=== PATIENT | male | born 1945 | race Caucasian/White ===

== ENCOUNTER → 2016-10-28 | Outpatient (CLI) | payer OTHER ==
[~2016-10-28] MED LIST: CHOL100055 PO; FEXO-47 PO; MULTTAB99 PO; OMEG300C7 PO; OMEP20CA5 PO; ROSU20TA14 PO
[2016-10-28 11:21] LABS: Basophils # (auto) 0 uL; Basophils % (auto) 0.5 % (0.0-2.0); Eosinophils # (auto) 0.2 uL; Eosinophils % (auto) 2.9 % (0.0-7.0); Hematocrit 46.7 % (41.0-53.0); Hemoglobin 15.6 g/dL (13.5-17.5); Lymphocytes # (auto) 1.5 uL; Lymphocytes % (auto) 22.5 % (10.0-50.0); Mean Corpuscular Hemoglobin 31.2 pg (28.0-32.0); Mean Corpuscular Hgb Conc. 33.4 g/dL (32.0-36.0); Mean Corpuscular Volume 93.6 fL (80.0-100.0); Mean Platelet Volume 8.5 fL (7.4-10.4); Monocytes # (auto) 0.6 uL; Monocytes % (auto) 8.7 % (0.0-12.0); Neutrophils # (auto) 4.3 uL; Neutrophils % (auto) 65.4 % (37.0-80.0); Platelet Count (auto) 202 10^3/uL (140-450); Red Cell Distribution Width 14.1 % (11.6-16.0); White Blood Cell 6.6 10^3/uL (4.4-10.8)
[2016-10-28 12:01] LABS: BUN/Creatinine Ratio 12.8; Bilirubin, Total 0.5 mg/dL (0.2-1.0); Calcium 9.4 mg/dL (8.5-10.1); Magnesium 2.5 mg/dL (1.6-2.6); Potassium 4.2 mmol/L (3.5-5.1); Total Protein 7.7 g/dL (6.4-8.2)
== END | disposition home or self-care (01) ==
LOC: LAB 10:52
PROVIDERS: ATTEND Internal Medicine
DX: I25.119 Atherosclerotic heart disease of native coronary artery with unspecified angina pectoris (principal); E78.5 Hyperlipidemia, unspecified
CPT/HCPCS: 36415; 80053; 80061; 83735; 84439; 84443; 85025; 85652

== ENCOUNTER → 2016-11-27 | Outpatient (CLI) | payer OTHER | END | disposition home or self-care (01) | LOC: XYW 09:20 | PROVIDERS: ATTEND Internal Medicine Cardiovascular Disease | DX: I35.0 Nonrheumatic aortic (valve) stenosis (principal); Z95.5 Presence of coronary angioplasty implant and graft | CPT/HCPCS: 93306 ==

== ENCOUNTER → 2017-06-16 | Outpatient (CLI) | payer OTHER ==
[~2017-06-16] MED LIST changes: -OMEP20CA5 PO; +OMEP20CA74 PO
[2017-06-16 12:09] LABS: Cholesterol 236 mg/dL (< 200)
[2017-06-16 21:39] LABS: Aspartate Aminotransferase 32 U/L (15-37); HDL Cholesterol 71 mg/dL (40-59); LDL Cholesterol 146 mg/dL (< 100); Triglycerides 225 mg/dL (< 150)
== END | disposition home or self-care (01) ==
LOC: LAB 10:17
PROVIDERS: ATTEND Internal Medicine
DX: E78.00 Pure hypercholesterolemia, unspecified (principal); N40.0 Benign prostatic hyperplasia without lower urinary tract symptoms
CPT/HCPCS: 36415; 80061; 84153; 84450; 84460

== ENCOUNTER → 2017-08-05 | Outpatient (CLI) | payer OTHER | END | disposition home or self-care (01) | LOC: LAB 10:00 | PROVIDERS: ATTEND Physician Assistant | DX: L82.1 Other seborrheic keratosis (principal) ==

== ENCOUNTER → 2017-08-07 | Outpatient (CLI) | payer OTHER ==
[2017-08-07 08:40] LABS: Albumin 4.1 g/dL (3.4-5.0); BUN/Creatinine Ratio 16.3; Bilirubin, Total 0.6 mg/dL (0.2-1.0); Potassium 3.8 mmol/L (3.5-5.1); Total Protein 8.1 g/dL (6.4-8.2)
== END | disposition home or self-care (01) ==
LOC: LAB 07:45
PROVIDERS: ATTEND Internal Medicine Cardiovascular Disease
DX: I35.0 Nonrheumatic aortic (valve) stenosis (principal); E78.5 Hyperlipidemia, unspecified
CPT/HCPCS: 36415; 80053; 80061

== ENCOUNTER → 2018-04-27 | Outpatient (CLI) | payer OTHER ==
[2018-04-27 10:48] LABS: Urine WBC None Seen /hpf (0 - 3)
[2018-04-27 11:27] LABS: Urine Bacteria NONE SEEN /hpf (None Seen); Urine Blood Negative /uL (Negative); Urine Specific Gravity 1.018 (1.001-1.035)
[2018-04-27 11:47] LABS: Basophils # (auto) 0 uL; Basophils % (auto) 0.9 % (0.0-2.0); Eosinophils # (auto) 0.1 uL; Eosinophils % (auto) 2.3 % (0.0-7.0); Hemoglobin 16.3 g/dL (13.5-17.5); Lymphocytes # (auto) 1.3 uL; Lymphocytes % (auto) 25.3 % (10.0-50.0); Mean Corpuscular Hemoglobin 33.3 pg (28.0-32.0); Mean Corpuscular Hgb Conc. 35.5 g/dL (32.0-36.0); Mean Corpuscular Volume 93.7 fL (80.0-100.0); Monocytes # (auto) 0.5 uL; Monocytes % (auto) 9.8 % (0.0-12.0); Neutrophils # (auto) 3.1 uL; Neutrophils % (auto) 61.7 % (37.0-80.0); Nucleated Red Blood Cells % 0.1 %; Platelet Count (auto) 171 10^3/uL (140-450); Red Blood Cells 4.91 10^6/uL (4.5-5.90); Red Cell Distribution Width 14.1 % (11.8-14.3)
[2018-04-27 12:01] LABS: Potassium 4.5 mmol/L (3.5-5.1)
[2018-04-27 12:12] LABS: Albumin 4.3 g/dL (3.4-5.0); BUN/Creatinine Ratio 16.3; Bilirubin, Total 0.5 mg/dL (0.2-1.0); Calcium 9.6 mg/dL (8.5-10.1); Total Protein 8.4 g/dL (6.4-8.2)
[2018-04-27 13:24] LABS: Free T4 (Free Thyroxine) 0.79 ng/dL (0.89-1.76)
[2018-04-27 13:25] LABS: Prostate Specific Antigen 0.76 ng/mL (0.0-4.0)
== END | disposition home or self-care (01) ==
LOC: LAB 09:50
PROVIDERS: ATTEND Internal Medicine
DX: N40.0 Benign prostatic hyperplasia without lower urinary tract symptoms (principal); E78.5 Hyperlipidemia, unspecified; I50.22 Chronic systolic (congestive) heart failure
CPT/HCPCS: 36415; 80053; 80061; 81001; 82550; 84153; 84439; 84443; 85025

== ENCOUNTER → 2018-07-23 | Outpatient (CLI) | payer OTHER, MEDICARE | END | disposition home or self-care (01) | LOC: LAB 14:19 | PROVIDERS: ATTEND Internal Medicine | DX: Z12.11 Encounter for screening for malignant neoplasm of colon (principal); N40.0 Benign prostatic hyperplasia without lower urinary tract symptoms; I25.10 Atherosclerotic heart disease of native coronary artery without angina pectoris; R21 Rash and other nonspecific skin eruption | CPT/HCPCS: 82270 ==

== ENCOUNTER → 2018-08-05 | Outpatient (CLI) | payer MEDICARE, OTHER | END | disposition home or self-care (01) | LOC: XYW 09:56 | PROVIDERS: ATTEND Internal Medicine | DX: I35.8 Other nonrheumatic aortic valve disorders (principal) | CPT/HCPCS: 93306 ==

== ENCOUNTER → 2018-11-04 | Outpatient (CLI) | payer OTHER ==
[2018-11-04 11:00] LABS: Albumin 4.3 g/dL (3.4-5.0); BUN/Creatinine Ratio 18.4; Calcium 9.1 mg/dL (8.5-10.1); Potassium 4.3 mmol/L (3.5-5.1)
[2018-11-04 11:04] LABS: Bilirubin, Total 0.6 mg/dL (0.2-1.0); Total Protein 7.8 g/dL (6.4-8.2)
== END | disposition home or self-care (01) ==
LOC: LAB 10:13
PROVIDERS: ATTEND Internal Medicine
DX: I35.0 Nonrheumatic aortic (valve) stenosis (principal); E11.9 Type 2 diabetes mellitus without complications; I25.10 Atherosclerotic heart disease of native coronary artery without angina pectoris
CPT/HCPCS: 36415; 80053; 80061

== ENCOUNTER 2019-01-27 08:01 | Inpatient (IN) | payer OTHER ==
[2019-01-25 12:14] LABS: INR 0.99 (0.9-1.15)
[2019-01-25 12:23] LABS: Basophils # (auto) 0 uL; Basophils % (auto) 0.8 % (0.0-2.0); Eosinophils # (auto) 0.1 uL; Eosinophils % (auto) 1.5 % (0.0-7.0); Hematocrit 45.5 % (41.0-53.0); Hemoglobin 15.6 g/dL (13.5-17.5); Lymphocytes # (auto) 1.6 uL; Lymphocytes % (auto) 24.8 % (10.0-50.0); Mean Corpuscular Hemoglobin 32.3 pg (28.0-32.0); Mean Corpuscular Hgb Conc. 34.2 g/dL (32.0-36.0); Mean Corpuscular Volume 94.4 fL (80.0-100.0); Monocytes # (auto) 0.6 uL; Monocytes % (auto) 8.7 % (0.0-12.0); Neutrophils # (auto) 4.2 uL; Neutrophils % (auto) 64.2 % (37.0-80.0); Nucleated Red Blood Cells % 0.1 %; Platelet Count (auto) 164 10^3/uL (140-450); Red Blood Cells 4.83 10^6/uL (4.5-5.90); White Blood Cell 6.5 10^3/uL (4.4-10.8)
[2019-01-25 12:57] LABS: Albumin 4.1 g/dL (3.4-5.0); Potassium 4.4 mmol/L (3.5-5.1)
[2019-01-25 13:01] LABS: BUN/Creatinine Ratio 16.7; Bilirubin, Total 0.5 mg/dL (0.2-1.0); Total Protein 8.1 g/dL (6.4-8.2)
[~2019-01-27] VITALS: Ht 170.2 cm; Wt 80.8 kg
[~2019-01-27 08:01] MED LIST changes: +CLOP75TA28 PO; +CLOT1CRE56 TOP; +DEXL30CA4 PO; -FEXO-47 PO; -OMEP20CA74 PO; -ROSU20TA14 PO; +ROSU40TA PO
[2019-01-27] MEDS ORDERED: IOHEXOL 350 MG/ML 100ML IJ ONE ×2 (08:26→08:47)
[2019-01-27] MEDS ORDERED: ANGIOMAX 250 MG VIAL IV ONE (08:46)
[2019-01-27] MEDS ORDERED: MIDAZOLAM HCL 1MG/1ML-2 ML VIAL ONE (08:46)
[2019-01-27] MEDS ORDERED: fentaNYL CITRATE 100 MCG/2 ML VL ONE (08:46)
[2019-01-27] MEDS ORDERED: SODIUM CHL 0.9% 0 ML ONE (08:47)
[2019-01-27] MEDS ORDERED: HEPARIN SODIUM (PORCINE) 5000 UNITS/ML 1ML VIAL ONE (09:32)
[2019-01-27] MEDS ORDERED: NITROGLYCERIN 0.4 MG SL TAB SL PRN (10:30)
[2019-01-27] MEDS ORDERED: MORPHINE SULF INJ 2 MG/ML SYRINGE 1ML IV PRN (10:30)
[2019-01-27] MEDS ORDERED: ONDANSETRON HCL 4 MG/2 ML VIAL IV PRN (10:30)
[2019-01-27] MEDS ORDERED: HYDROcodone-ACET 5/325MG TAB PO PRN (10:30)
[2019-01-27] MEDS ORDERED: ACETAMINOPHEN 500 MG TAB PO PRN (10:30)
[2019-01-27 11:40] VITALS: BP 119/79
--- NOTE | 2019-01-27 11:56 | NUR ---
Assumed care of pt after report from laboratory machinist. On tele 26 sinus david 58. S/P left heart cath. AAOX4, breathing even, nonlabored, S1, S2, Abd soft nontender, LBM 01/27/19, Dressing to right groin clean/dry/intact. Pedal pulses on affected leg assessed for positive tissue perfusion. Patient instructed to be flat in bed until 1230 and notify staff immediately if any pain, burning or wetness to site, and any lower back pain. All questions and concerns addressed, patient verbalized understanding of all education and instruction. Bed locked in the lowest position, call light within easy reach, will continue care. VS: 98.1, 20, 58, 119/79, 93% on ra.
--- NOTE | 2019-01-27 12:30 | NUR ---
SITTING UP IN BED EATING LUNCH, FAMILY AT BEDSIDE. RIGHT GROIN DRESSING CLEAN/DRY/INTACT, NO BLEEDING, NO BRUISING NOTED. PEDAL PULSES (+) SARBJIT. VS: 98.2, 120/61, 18, 98%, 0/10. WILL CONTINUE TO MONITOR.
[2019-01-27 13:00] VITALS: BP 119/79
[2019-01-27] MEDS ORDERED: VITA400C49 PO (13:30)
[2019-01-27] MEDS: CHOLECALCIFEROL (VITD3) 1,000 UNIT TAB PO SCH (14:44)
[2019-01-27 18:00] VITALS: BP 126/71
--- NOTE | 2019-01-27 19:00 | NUR ---
Opening Shift Note Assumed care of patient, awake and alert. No S/S of distress/SOB or pain. Instructed on POC and to call for assist PRN, will continue to monitor for changes Q1hr and PRN.
--- NOTE | 2019-01-27 19:15 | NUR ---
CARE ENDORSED TO NOC RN.
[2019-01-27] MEDS: ENOXAPARIN SOD 40 MG/0.4 ML SYRINGE SC SCH (21:48)
[2019-01-27 22:00] VITALS: BP 116/78
[2019-01-28 05:00] VITALS: BP 120/73
--- NOTE | 2019-01-28 07:10 | NUR ---
Opening Note Received report from warehouse supervisor 3rd shift RN. Patient is awake, alert and oriented x4. No signs or symptoms of distress noted at this time. Patient is s/p heart cath. Dressing to right groin in clean, dry and intact. Minimal bruising and erythema noted to the area. Patient states pain to the area. No swelling noted. Reviewed plan of care with patient, patient verbalized understanding. Bed in low and locked position, call light within reach. Will continue to monitor Q1 hour and PRN.
[2019-01-28 09:00] VITALS: BP 131/76
[2019-01-28] MEDS: CHOLECALCIFEROL (VITD3) 1,000 UNIT TAB PO SCH (09:44)
[2019-01-28] MEDS: MULTIPLE VITAMIN TAB PO SCH (09:45)
[2019-01-28] MEDS: ENOXAPARIN SOD 40 MG/0.4 ML SYRINGE SC SCH ×2 (09:45→21:34)
--- NOTE | 2019-01-28 11:15 | NUR ---
family at bedside
[2019-01-28 13:00] VITALS: BP 132/79
[2019-01-28 17:00] VITALS: BP 121/88
[2019-01-28] MEDS ORDERED: NITROGLYCERIN 0.4 MG SL TAB SL PRN (17:15)
--- NOTE | 2019-01-28 18:59 | NUR ---
Closing note Report given to shift stacker RN. No signs or symptoms of distress noted at this time. Ultra sound tech at bedside.
[2019-01-28 22:00] VITALS: BP 111/67
[2019-01-29 05:09] VITALS: BP 101/75
--- NOTE | 2019-01-29 07:05 | NUR ---
Opening Note Received report from shift commander RN. Patient is awake, alert and oriented x4. No signs or symptoms of distress noted at this time. Patient denies pain at this time. Patient is s/p heart cath. Dressing to right groin is clean, dry and intact. Patient is on room air, respirations even and unlabored. Reviewed plan of care with patient, patient verbalized understanding. Bed in low and locked position, call light within reach. Will continue to monitor Q1 hour and PRN.
[2019-01-29 07:49] LABS: Calcium 9.6 mg/dL (8.5-10.1); Potassium 4.1 mmol/L (3.5-5.1)
[2019-01-29 07:53] LABS: BUN/Creatinine Ratio 15.9
[2019-01-29 08:02] LABS: Basophils # (auto) 0 uL; Basophils % (auto) 0.7 % (0.0-2.0); Eosinophils # (auto) 0.2 uL; Eosinophils % (auto) 2.7 % (0.0-7.0); Hematocrit 46.9 % (41.0-53.0); Hemoglobin 16.2 g/dL (13.5-17.5); Lymphocytes # (auto) 1.4 uL; Lymphocytes % (auto) 22.3 % (10.0-50.0); Mean Corpuscular Hemoglobin 32.3 pg (28.0-32.0); Mean Corpuscular Hgb Conc. 34.6 g/dL (32.0-36.0); Mean Corpuscular Volume 93.4 fL (80.0-100.0); Monocytes # (auto) 0.7 uL; Monocytes % (auto) 11.1 % (0.0-12.0); Neutrophils # (auto) 3.9 uL; Neutrophils % (auto) 63.2 % (37.0-80.0); Nucleated Red Blood Cells % 0.3 %; Platelet Count (auto) 174 10^3/uL (140-450); Red Blood Cells 5.02 10^6/uL (4.5-5.90); Red Cell Distribution Width 14.1 % (11.8-14.3); White Blood Cell 6.1 10^3/uL (4.4-10.8)
[2019-01-29 09:00] VITALS: BP 121/85
--- NOTE | 2019-01-29 09:10 | NUR ---
Dr. Jones at bedside Dr. Jones at bedside reviewing plan of care with patient.
[2019-01-29] MEDS: MULTIPLE VITAMIN TAB PO SCH (09:58)
[2019-01-29] MEDS: ENOXAPARIN SOD 40 MG/0.4 ML SYRINGE SC SCH ×2 (09:59→21:40)
[2019-01-29] MEDS: CHOLECALCIFEROL (VITD3) 1,000 UNIT TAB PO SCH (09:59)
[2019-01-29 13:00] VITALS: BP 144/61
--- NOTE | 2019-01-29 14:55 | NUR ---
Dr. Haresh Dave at bedside Reviewing plan of care with patient . New medication order received, will implement new orders.
[2019-01-29 17:00] VITALS: BP 136/79
--- NOTE | 2019-01-29 19:05 | NUR ---
Closing Note Report given to shift supervisor rn RN. No signs or symptoms of distress noted at this time.
[2019-01-29] MEDS: LORATADINE 10 MG TAB PO SCH (21:40)
[2019-01-29] MEDS: ATORVASTATIN 20 MG TAB PO SCH (21:40)
[2019-01-29 22:00] VITALS: BP 115/77
[2019-01-30 05:00] VITALS: BP 117/73
[2019-01-30 09:00] VITALS: BP 117/75
[2019-01-30] MEDS: LORATADINE 10 MG TAB PO SCH (09:48)
[2019-01-30] MEDS: FAMOTIDINE 20 MG TAB PO SCH (09:48)
[2019-01-30] MEDS: CHOLECALCIFEROL (VITD3) 1,000 UNIT TAB PO SCH (09:48)
[2019-01-30] MEDS: MULTIPLE VITAMIN TAB PO SCH (09:48)
[2019-01-30] MEDS: ENOXAPARIN SOD 40 MG/0.4 ML SYRINGE SC SCH ×2 (09:48→21:54)
--- NOTE | 2019-01-30 11:00 | NUR ---
Dr. Tha Dave in to see patient as hospitalist.
[2019-01-30 13:00] VITALS: BP 139/73
--- NOTE | 2019-01-30 13:38 | NUR ---
NUTRITION ASSESSMENT NOTES Please refer to link notes of nutrition screen form filed under the intervention section of the plan of care for further details. Est. Needs: 1700 kcal to 2150 kcal (20-25 kcal/kgBW), 68 gms to 85 gms pro (0.8-1.0 gms/kgBW). Will continue to monitor pertinent labs and reassess nutrient need prn Thank you. Addendum: 01/30/19 at [address] Amended: Links added.
[2019-01-30 17:00] VITALS: BP 114/89
--- NOTE | 2019-01-30 18:45 | NUR ---
Patient resting quietly. No S/S distress.
[2019-01-30 21:00] VITALS: BP 107/69
[2019-01-30] MEDS: ATORVASTATIN 20 MG TAB PO SCH (21:54)
[2019-01-31 04:30] VITALS: BP 109/74
[2019-01-31 08:00] VITALS: BP 122/75
[2019-01-31 09:00] VITALS: BP 122/75
[2019-01-31] MEDS: ENOXAPARIN SOD 40 MG/0.4 ML SYRINGE SC SCH ×2 (10:21→21:47)
[2019-01-31] MEDS: FAMOTIDINE 20 MG TAB PO SCH (10:22)
[2019-01-31] MEDS: MULTIPLE VITAMIN TAB PO SCH (10:22)
[2019-01-31] MEDS: LORATADINE 10 MG TAB PO SCH (10:22)
[2019-01-31] MEDS: CHOLECALCIFEROL (VITD3) 1,000 UNIT TAB PO SCH (10:22)
--- NOTE | 2019-01-31 10:30 | NUR ---
Dr. Tha Dave in to see patient as hospitalist.
[2019-01-31 16:05] VITALS: BP 117/82
[2019-01-31 17:00] VITALS: BP 111/78
[2019-01-31] MEDS: ATORVASTATIN 20 MG TAB PO SCH (21:47)
[2019-01-31 22:00] VITALS: BP 108/75
[2019-02-01 05:00] VITALS: BP 112/71
[2019-02-01 09:29] VITALS: BP 119/77
[2019-02-01] MEDS: ENOXAPARIN SOD 40 MG/0.4 ML SYRINGE SC SCH ×2 (10:00→22:00)
[2019-02-01] MEDS: FAMOTIDINE 20 MG TAB PO SCH (10:07)
[2019-02-01] MEDS: CHOLECALCIFEROL (VITD3) 1,000 UNIT TAB PO SCH (10:07)
[2019-02-01] MEDS: MULTIPLE VITAMIN TAB PO SCH (10:08)
[2019-02-01] MEDS: LORATADINE 10 MG TAB PO SCH (10:08)
--- NOTE | 2019-02-01 11:00 | NUR ---
DR. HUGHES IN TO SEE PT. PLAN OF CARE IN DISCUSSION. PT IN AGREEMENT WITH PLAN. TYPE AND SCREEN ORDERED PER MD REQUEST. PT TO BE NPO AFTER MIDNIGHT.
[2019-02-01 13:09] VITALS: BP 126/82
[2019-02-01 17:14] VITALS: BP 126/84
[2019-02-01] MEDS ORDERED: MUPIROCIN 2% OINT 15gm or 22gm TOP SCH (21:00)
[2019-02-01 22:00] VITALS: BP 139/99
[2019-02-01] MEDS ORDERED: CHLORHEXIDINE 4% TOPICAL soln 118ml TOP SCH (22:00)
[2019-02-01] MEDS ORDERED: ASCORBIC ACID 500 MG TAB PO ONE (22:00)
[2019-02-01] MEDS: ATORVASTATIN 20 MG TAB PO SCH (22:03)
--- NOTE | 2019-02-01 22:25 | NUR ---
IV removal IV to Left FA DC'd with sterile technique, catheter fully intact. Pressure dressing applied to site. Patient tolerated procedure well.
--- NOTE | 2019-02-01 22:30 | NUR ---
IV insertion IV access obtained, via clean sterile technique by inserting 18 gauge catheter at Right AC and Left FA after 1 attempt. IV's secured properly. No trauma to site. Patient tolerated procedures well.
--- NOTE | 2019-02-01 23:15 | NUR ---
Patient transferred to ICU for procedure prep for heart surgery tomorrow. Patient stable, vitals WNL, no signs or complaints of pain or respiratory distress. Patient tolerated transfer well.
--- NOTE | 2019-02-01 23:31 | NUR ---
ARRIVAL NOTE PT ARRIVED TO ICU AND PLACED IN ROOM 101. VSS. PT ALERT AND ORIENTED X4. ARRIVAL VS. TEMP 98.1 ORAL, HR 86, RR 18. BP 128/86. FALL RIGHT BAND PLACED ON PT. PT ARRIVED WITH CELL PHONE AND GLASSES AT BEDSIDE. BED LOCKED AND IN LOWEST POSITION, SAFETY PRECAUTIONS IN PLACE. POC DISCUSSED WITH PATIENT. PT VERBALIZED UNDERSTANDING. WILL MONITOR PT CAREFULLY.
--- NOTE | 2019-02-01 23:34 | NUR ---
PT GIVEN OPEN HEART PREPARATION VIDEO AT THIS TIME. PT WATCHING VIDEO.
[2019-02-01 23:45] VITALS: BP 119/79
[2019-02-02] VITALS (71 sets, daily range): BP systolic 28–165; BP diastolic 3–92
--- NOTE | 2019-02-02 00:05 | NUR ---
Pt npo at this time
--- NOTE | 2019-02-02 01:30 | NUR ---
PT OOB TO VOID. PT BACK IN BED WITH NO INCIDENT.
--- NOTE | 2019-02-02 02:28 | NUR ---
PT'S SATS DROPPED TO LOW 88% WHILE SLEEPING. PLACED ON 1 LT NC.
[2019-02-02 04:05] LABS: Basophils # (auto) 0 uL; Basophils % (auto) 0.5 % (0.0-2.0); Eosinophils # (auto) 0.2 uL; Eosinophils % (auto) 2.8 % (0.0-7.0); Hematocrit 46.4 % (41.0-53.0); Hemoglobin 16.2 g/dL (13.5-17.5); Lymphocytes # (auto) 1.8 uL; Lymphocytes % (auto) 26.8 % (10.0-50.0); Mean Corpuscular Hemoglobin 32.9 pg (28.0-32.0); Mean Corpuscular Hgb Conc. 34.9 g/dL (32.0-36.0); Mean Corpuscular Volume 94.2 fL (80.0-100.0); Monocytes # (auto) 0.7 uL; Neutrophils # (auto) 3.9 uL; Neutrophils % (auto) 58.9 % (37.0-80.0); Nucleated Red Blood Cells % 0.1 %; Platelet Count (auto) 169 10^3/uL (140-450); Red Blood Cells 4.92 10^6/uL (4.5-5.90); Red Cell Distribution Width 14.2 % (11.8-14.3); White Blood Cell 6.7 10^3/uL (4.4-10.8)
[2019-02-02 04:21] LABS: BUN/Creatinine Ratio 18.6; Calcium 9.1 mg/dL (8.5-10.1); Potassium 4.7 mmol/L (3.5-5.1)
[2019-02-02 04:33] LABS: INR 1.05 (0.9-1.15); Partial Thromboplastin Time 30.5 sec (23.64-32.05)
--- NOTE | 2019-02-02 04:47 | NUR ---
pt shaved, bathed and washed with hibiclens.
--- NOTE | 2019-02-02 05:00 | NUR ---
pt oob [id number] to shave and bathe. No vitals documented at this time.
[2019-02-02] MEDS ORDERED: ceFAZolin 1GM 2 GM in D5W 5% 50 ML IV ONE (06:00)
[2019-02-02] MEDS ORDERED: ACCU-CHEK COMFORT CURVE STRIP VI ONE (06:00)
[2019-02-02] MEDS ORDERED: VANCOMYCIN 1GM/250ML 250 ML IV ONE (06:00)
[2019-02-02] MEDS ORDERED: CHLORHEXIDINE 0.12% ORAL rinse 473ML MT ONE (06:00)
[2019-02-02] MEDS ORDERED: BACITRACIN INJ 50000 UNIT VIAL ONE ×2 (06:17→12:58)
[2019-02-02] MEDS ORDERED: PAPAVERINE HCL 60 MG/2 ML 2ML VIAL ONE (06:17)
[2019-02-02] MEDS ORDERED: HEPARIN 1,000 UNITS/ml 1ML VIAL ONE (06:17)
[2019-02-02] MEDS ORDERED: NITROGLYCERIN 50MG/250ML 250 ML IV ONE (06:18)
--- NOTE | 2019-02-02 07:03 | NUR ---
pt taken to OR at this time
[2019-02-02] MEDS ORDERED: ceFAZolin 1GM/50ML 50 ML IV ONE (07:17)
[2019-02-02] MEDS ORDERED: PROPOFOL 10 MG/ML 20 ML IV ONE ×2 (07:24→09:25)
[2019-02-02] MEDS ORDERED: ROCURONIUM 10MG/ML 10ML VIAL IV ONE ×2 (07:24→10:52)
[2019-02-02] MEDS ORDERED: MIDAZOLAM HCL 1MG/1ML-2 ML VIAL ONE (07:25)
[2019-02-02] MEDS ORDERED: fentaNYL CITRATE 5 ML ONE (07:25)
--- NOTE | 2019-02-02 07:25 | NUR ---
REPORT Report received from Waylon WOMACK. Patient currently in OR.
[2019-02-02] MEDS ORDERED: ALBUMIN 5% 250 ML IV ONE (07:37)
[2019-02-02] MEDS ORDERED: MANNITOL FTV 25% 12.5 GM/50 ML 100 ML IV ONE (07:38)
[2019-02-02] MEDS ORDERED: PLASMA-LYTE A pH7.4 4,000 ML INJ ONE (07:38)
[2019-02-02] MEDS ORDERED: ALBUMIN 25% IV ONE (07:38)
[2019-02-02] MEDS ORDERED: AMINOCAPROIC ACID 5 GM in SODIUM CHL 0.9% 250 ML IV ONE (08:00)
[2019-02-02] MEDS ORDERED: EPINEPHrine HCL 4 MG in D5W 5% 250 ML IV ONE (08:00)
[2019-02-02] MEDS ORDERED: AMINOCAPROIC ACID 10 GM in SODIUM CHL 0.9% 100 ML IV ONE (08:00)
[2019-02-02] MEDS ORDERED: HEPARIN 30000 UNITS in SODIUM CHLORIDE 0.9% 1000 ML IV ONE (08:00)
[2019-02-02] MEDS ORDERED: InsuLIN R (HUMAN) 100 UNITS in SODIUM CHL 0.9% 99 ML IV ONE (08:00)
[2019-02-02] MEDS ORDERED: NOREPINEPHRINE 8 MG/250ML KIT 250 ML IV ONE (08:00)
[2019-02-02] MEDS ORDERED: PHENYLEPHRINE INJ 20 MG in SODIUM CHL 0.9% 250 ML IV ONE (08:00)
[2019-02-02] MEDS ORDERED: TRANEXAMIC ACID 1,000 mg/10ml INJ VIAL IV ONE (08:10)
[2019-02-02] MEDS ORDERED: PHENYLEPHRINE HCL 10 MG/ML VL IV ONE (08:10)
[2019-02-02] MEDS ORDERED: POTASSIUM CHL 2MEQ/ML 20ML IV ONE (08:10)
[2019-02-02] MEDS ORDERED: SODIUM BICARBONATE 8.4 % INJ 50ML VIAL IV ONE (08:10)
[2019-02-02] MEDS ORDERED: LIDOCAINE HCL 100 MG/5ML (2%) SYRG INJ IV ONE (08:10)
[2019-02-02] MEDS ORDERED: HEPARIN SODIUM (PORCINE) 5000 UNITS/ML 1ML VIAL SC ONE (08:10)
[2019-02-02] MEDS ORDERED: CALCIUM GLUC 4.65 MEQ/10ML IV ONE (08:10)
[2019-02-02] MEDS ORDERED: ADENOSINE 6 MG/2 ML INJ IV ONE (08:10)
[2019-02-02] MEDS ORDERED: MAGNESIUM SULF 50% 40 MEQ/10 ML VL IV ONE (08:10)
[2019-02-02] MEDS ORDERED: FUROSEMIDE 20 MG/2 ML VIAL IV ONE (08:10)
[2019-02-02] MEDS ORDERED: CALCIUM CHL(10%) 100MG/ML 10ML VIAL IV ONE (08:10)
[2019-02-02] MEDS ORDERED: ceFAZolin 1GM VL ONE (08:32)
[2019-02-02] MEDS ORDERED: MANNITOL 20 % (20GM/100ML) 1,000 ML IV ONE (08:42)
[2019-02-02] MEDS ORDERED: fentaNYL CITRATE 100 MCG/2 ML VL ONE (10:52)
--- NOTE | 2019-02-02 12:15 | NUR ---
Nutrition Follow-up Notes Wt.: 84.5 kg Pt was off the floor when rounded this am. per records pt to have open heart sx today. pt is currently NPO for procedure Est. Needs: 1700 kcal to 2150 kcal (20-25 kcal/kgBW), 68 gms to 85 gms pro (0.8-1.0 gms/kgBW). Will continue to monitor pertinent labs and reassess nutrient need prn Labs: BUN 19 H. rest lab wnl for today Skin: Filipe scale 21, low risk, skin intact per documentation consultant. GI: Pt had 1 BM on 01/28/19 per documentation consultant. PES: Altered nutrition related lab values r/t acute/chronic medical condition aeb hyperglycemia, elev. HbA1c, LFTs Will continue to monitor NPO status, skin status, pertinent labs and weight trend. F/u in 2-3 days. Rec.: 1.) Resume oral diet when medically appropriate. 2.) Continue close supervision with meals 3.) Refer to RD for further nutrition education and weight monitoring upon discharged. 4.) Continue current plan of care.
[2019-02-02] MEDS ORDERED: PROTAMINE SULFATE 250 MG/25 ML VL IV ONE (12:42)
[2019-02-02] MEDS ORDERED: PROPOFOL 100 ML IV ONE (14:07)
--- NOTE | 2019-02-02 14:50 | NUR ---
MD UPDATE called Yulisa and updated her on surgery outcome.
[2019-02-02] MEDS: D5W/SOD CHL 0.45% 1,000 ML IV SCH ×2 (14:52→22:12)
[2019-02-02] MEDS: PHENYLEPHRINE IV 250 ML IV SCH (14:52)
[2019-02-02] MEDS ORDERED: DexMEDEtomidine 400 MCG in D5W 5% 96 ML IV SCH (14:52)
[2019-02-02] MEDS: NICARDIPINE 25MG/250ML BAG KIT 250 ML IV SCH ×2 (14:52→19:52)
[2019-02-02] MEDS: MILRINONE 20MG/100ML 100 ML IV SCH (14:52)
[2019-02-02] MEDS ORDERED: PROPOFOL 100 ML IV SCH (14:52)
[2019-02-02] MEDS ORDERED: INSULIN DRIP 100 UNIT/100ML 100 ML IV SCH (14:52)
[2019-02-02] MEDS ORDERED: SODIUM BICARBONATE 8.4% INJ 50ML SYRINGE IV PRN (15:00)
[2019-02-02] MEDS ORDERED: AMIODARONE HCL 150 MG in D5W 5% 100 ML IV ONE (15:00)
[2019-02-02] MEDS ORDERED: fentaNYL CITRATE 100 MCG/2 ML VL IV PRN (15:00)
[2019-02-02] MEDS ORDERED: ZOLPIDEM TARTRATE 5 MG TAB PO PRN (15:00)
[2019-02-02] MEDS ORDERED: MORPHINE SULFATE 10 MG/ML INJ 1ML SDV IV PRN (15:00)
[2019-02-02] MEDS ORDERED: NITROGLYCERIN 0.4 MG SL TAB SL PRN (15:00)
[2019-02-02] MEDS: ALBUMIN 5% 250 ML IV SCH ×2 (15:00→19:46)
[2019-02-02] MEDS ORDERED: PROPRANOLOL HCL 1 MG/ML VIAL IV PRN (15:00)
[2019-02-02] MEDS ORDERED: diphenhdrAMINE HCL 25 MG CAP PO PRN (15:00)
[2019-02-02] MEDS ORDERED: DEXTROSE (50%) 50ML SYRG IV PRN (15:00)
[2019-02-02] MEDS ORDERED: MORPHINE SULFATE 4 MG/ML SYR/VIAL IV PRN (15:00)
[2019-02-02] MEDS ORDERED: ALBUMIN 25% 250 ML IV PRN (15:00)
[2019-02-02] MEDS ORDERED: MAGNESIUM SULFATE 1GM/100ML 100 ML IV PRN (15:00)
[2019-02-02] MEDS: ACCU-CHEK COMFORT CURVE STRIP VI SCH ×10 (15:00→23:59)
[2019-02-02] MEDS: NOREPINEPHRINE 8 MG/250ML KIT 250 ML IV SCH (15:00)
[2019-02-02] MEDS ORDERED: MORPHINE SULF INJ 2 MG/ML SYRINGE 1ML IV PRN (15:00)
[2019-02-02] MEDS ORDERED: ALBUMIN 5% 250 ML IV PRN (15:00)
[2019-02-02] MEDS ORDERED: AMIODARONE HCL 900 MG in DEXTROSE 500 ML IV SCH (15:02)
--- NOTE | 2019-02-02 15:10 | NUR ---
Pt. arrived from [facility] accompanied by cardiothoracic team on hemodynamic monitoring. Report received from anesthesiologist and Dr. Jones. Surgery: Cabg x 1- Willis to LAD, Aortic valve replacement. Lines: PA catheter around 55cm at the Hub initially, but Cl CALL removed to 53 CM of the Dual lumen Cordis to the right IJ. Gisell to left radial artery Pacer wires: Atrial and ventricular, on standby. Chest Tube: Right/left pleural, mediastinal. Arnold: 16 F, martínez red urine output ET tube: 8.5, 24 cm lip line Gtts: Levophed, NS, Diprivan Hemodynamics: CO/CI:4.3/2.2 HR: 76 Assisted BP: 130/64 MAP: 86 CVP: 12 PAP: 46/19 SVR: 767 SVO2: 63% SPO2: 100% Immediate Post- Op recovery Chest X-ray, EKG, Lines zero'd and labs drawn. No events occurred. Vitals stable.
[2019-02-02 15:48] LABS: Basophils # (auto) 0 uL; Basophils % (auto) 0.3 % (0.0-2.0); Eosinophils # (auto) 0 uL; Eosinophils % (auto) 0.2 % (0.0-7.0); Hematocrit 30.1 % (41.0-53.0); Hemoglobin 10.2 g/dL (13.5-17.5); Lymphocytes # (auto) 1.3 uL; Lymphocytes % (auto) 9.5 % (10.0-50.0); Mean Corpuscular Hgb Conc. 33.8 g/dL (32.0-36.0); Mean Corpuscular Volume 94.7 fL (80.0-100.0); Monocytes % (auto) 7.3 % (0.0-12.0); Neutrophils # (auto) 11.1 uL; Neutrophils % (auto) 82.7 % (37.0-80.0); Platelet Count (auto) 108 10^3/uL (140-450); Red Blood Cells 3.18 10^6/uL (4.5-5.90); Red Cell Distribution Width 14.2 % (11.8-14.3); White Blood Cell 13.4 10^3/uL (4.4-10.8)
--- NOTE | 2019-02-02 15:50 | NUR ---
Respiratory note: RECEIVED PATIENT FROM OR TEAM AT APPROX 1510. HE HAD AORTIC VALVE REPLACED AND ONE GRAFT DONE, JOHNSON TO LAD. HE WAS BEING BAGGED BY DR. SIMMONS VIA AMBU BAG AND WITH 100% FIO2. PATIENT HAS AN 8.5 ETT SECURED WITH TAPE AT THE 24CM MARKING AT THE LIP. HE WAS PLACED ON V8 CARESCAPE VENT AND IS MECHANICALLY VENTILATED WITH THE ABOVE CHARTED SETTINGS. ETT WAS RESECURED WITH LIBRADO AND REMAINS SECURED AT THE 24CM MARKING. CXR SHOWS ETT IN SATISFACTORY POSITION. ABG PULLED, MIXED VENOUS SAMPLE PULLED, AND BOTH SAMPLES WERE RUN AND VALUES REPORTED TO VU NEWMAN. FIO2 DECREASED TO 40% POST ABG RESULTS, VU NEWMAN MADE AWARE OF CHANGE. SPO2 100%, SKIN IS COOL/DRY TO THE TOUCH AND IS INTACT NEAR LIBRADO SITE. THERE IS AN OGT IN PLACE AND SECURED TO THE ETT, A SWAN-HARPREET CATHETER IS PLACED IN THE RIGHT IJ, IS SECURED AND PATENT. THERE IS A PRESSURE DRESSING OVER THE STERNUM COVERING CABG INCISION SITE, NO DRAINAGE NOTED. PACER/WIRES ARE IN PLACE AND COVERED WITH DRESSING. THERE ARE THREE CHEST TUBES IN PLACE, LEFT PLEURAL, RIGHT PLEURAL, AND MEDIASTINAL. ALL THREE ARE DRAINING WELL AND DRESSED. THERE IS A LEFT RADIAL ARTERIAL LINE PLACED. PATIENT IS SEDATED ON PROPOFOL DRIP AND IS SHOWING A SLIGHT RESPONSE TO TACTILE STIMULI. HE IS RESTING COMFORTABLY AND TOLERATING VENT WELL. VENT PLUGGED INTO RED OUTLET AND ALL ALARMS ARE SET AND AUDIBLE. HEMODYNAMICS: BP: 108/54, CVP 13, PA 44/18, SVO2 63, CCI 2.7 DRIPS: LEVOPHED, PROPOFOL OUTPUTS: URINE 60ML, CHEST TUBES 160ML
[2019-02-02] MEDS: NITROGLYCERIN 50MG/250ML 250 ML IV SCH (16:00)
[2019-02-02 16:06] LABS: BUN/Creatinine Ratio 14.3; Calcium 7.8 mg/dL (8.5-10.1); Magnesium 3.7 mg/dL (1.6-2.6); Phosphorus 1.4 mg/dL (2.5-4.90); Potassium 4.3 mmol/L (3.5-5.1)
[2019-02-02 16:07] LABS: INR 1.28 (0.9-1.15); Partial Thromboplastin Time 32.1 sec (23.64-32.05)
[2019-02-02 16:08] LABS: Bilirubin, Total 1.3 mg/dL (0.2-1.0)
[2019-02-02] MEDS: VANCOMYCIN 1GM/250ML 250 ML IV SCH (16:12)
[2019-02-02] MEDS: DexMEDEtomidine 400 MCG in D5W 5% 96 ML IV SCH (16:26)
[2019-02-02] MEDS: SODIUM CHLORIDE 0.9% 500 ML IV SCH (16:27)
--- NOTE | 2019-02-02 16:30 | NUR ---
SEDATION Precedex gtt began. Starting to titrate off Diprivan for Cpap trial.
--- NOTE | 2019-02-02 17:20 | NUR ---
VISITORS Patient and daughter at bedside. Updated on patient status and plan of care. All questions and concerns addressed.
--- NOTE | 2019-02-02 17:25 | NUR ---
MD VISIT at bedside assessing vitals, EKG, and outputs.
--- NOTE | 2019-02-02 17:25 | NUR ---
CPAP Patient following commands. Vitals stable. MD wants to place patient on Cpap trial for weaning. Patient tolerating well at this time. Family at bedside.
[2019-02-02] MEDS: CALCIUM GLUC 4.65meq/50ml D5AE 50 ML IV PRN (17:27)
[2019-02-02] MEDS: ONDANSETRON HCL 4 MG/2 ML VIAL IV PRN (17:39)
--- NOTE | 2019-02-02 17:55 | NUR ---
EXTUBATE Patient extubated per MD order. Patient placed on cool mist mask at 50% Fio2. No stridor or shortness of breath noted. Oxygen saturation 95%. Will continue to monitor.
--- NOTE | 2019-02-02 17:55 | NUR ---
PER MD STEWART ADLER TO EXTUBATE. PT EXTUBATED W/O INCIDENT AND PLACED ON 10L AEROSOL MASK AT 55% HR 95 POX 95% RR 28 PT WITH CO PAIN IN LEFT UPPER BACK. WILL CONTINIUE TO MONITOR.
[2019-02-02] MEDS: ALBUTEROL SULF 2.5 MG/0.5ML(0.5%) NEB SOLN NEB SCH (18:00)
[2019-02-02] MEDS: IPRATROPIUM BROM 0.5 MG/2.5ML INH SOL NEB SCH (18:00)
[2019-02-02] MEDS ORDERED: ACETAMINOPHEN IV 100 ML IV ONE (18:00)
--- NOTE | 2019-02-02 18:05 | NUR ---
PAIN Patient complaining of medial upper back pain. Per MD patient given IV Tylenol as well as fentanyl. MD at bedside assessing patient. Patient repositioned in side. Vitals stable.
[2019-02-02] MEDS: fentaNYL CITRATE 100 MCG/2 ML VL IV PRN ×2 (18:25→21:50)
[2019-02-02] MEDS: ceFAZolin 1GM 2 GM in D5W 5% 100 ML IV SCH (18:39)
[2019-02-02] MEDS: MORPHINE SULFATE 4 MG/ML SYR/VIAL IV PRN (18:49)
--- NOTE | 2019-02-02 19:00 | NUR ---
SHIFT OUTPUTS Arnold: 800cc R/L:220 cc Mediastinal: 250cc
--- NOTE | 2019-02-02 19:00 | NUR ---
CARES Partial linen change performed. Skin assessment complete, skin intact. Patient repositioned on side. Tolerated activity fair. Vital stable. Bed locked in lowest position with call light within reach.
--- NOTE | 2019-02-02 19:10 | NUR ---
MD UPDATE called for update on patient. He is aware of gtts, oxygen saturation, and pain control. New pain medication orders received. MD would like to give Tylenol IV q6 and then give Toradol q 6hr in between Tylenol administration to get patients pain under better control. Orders placed.
--- NOTE | 2019-02-02 19:23 | NUR ---
REPORT Report given to Odalys WOMACK, care endorsed.
--- NOTE | 2019-02-02 19:30 | NUR ---
Initial Assessment Patient received laying on bed with eyes closed and RR even and unlabored with equal rise and fall on cool mist mask with 50% Fi02. No strider present. HOB elevate to 30 degrees. Patient is awake, alert, and oriented x4 and reports pain. Will medicate per MD orders. Right IJ dual lumen cordis present with swan at approximately 53cm at the hub. Wedge balloon fully deflated. Hemodynamics stable at this time. Patient is NSR on the monitor with no ectopy. Infusing Nitro, Levophed, Insulin (through dedicated line), and NS. Refer to IV spreadsheet for titration specifics. Patient able to move all extremities with equal strength and no facial drooping or slurring of speech noted-pt answers all questions appropriately and follows commands. Atrial and ventricular epicardial wires connected to external pacemaker generator. Mid-sternal incision covered with Aquacel that is CDI. Chest tube insertion sites x3 connected to Atrium collection chambers at -[id number] suction draining sanguineous fluid with no clots, crepitus, or air leak noted. Left wrist has radial arterial line present. PA and arterial lines leveled and zeroed all with good waveforms. F/C intact and draining light rust colored urine to gravity (per day shift report, Dr. Jones is aware of hematuria and no interventions necessary at this time). Neurovascular status is intact with palpable distal pulses x4 extremities, skin warm to touch, and capillary refill brisk.
[2019-02-02] MEDS: POTASSIUM CHL 20MEQ/100ML 100 ML IV PRN ×2 (19:42→21:14)
--- NOTE | 2019-02-02 19:42 | NUR ---
Electrolyte Replacement Potassium 3.8-being replaced per protocol.
[2019-02-02] MEDS ORDERED: KETOROLAC TROMETH 15 mg/ml 1ML VL IV PRN (19:45)
[2019-02-02] MEDS ORDERED: KETOROLAC TROMETH 15 mg/ml 1ML VL IV ONE (19:45)
--- NOTE | 2019-02-02 19:45 | NUR ---
Oxygenation Patient requesting to have the oxygen mask off. RT assessed patient and switched him over to Oxymizer and 5L. No stridor heard, RR remains even and unlabored with equal rise and fall. Sp02 96.
--- NOTE | 2019-02-02 20:15 | NUR ---
Pacemaker check Ventricular Pacemaker is attempting to fire although patient's intrinsic rhythm is in the 90's. Sensitivity turned to max and it continues to try to fire. Pacemaker settings turned to AAI for safety and it is no longer trying to fire when not appropriate.
[2019-02-02] MEDS: AMIODARONE HCL 900 MG in DEXTROSE 500 ML IV SCH (21:02)
[2019-02-02] MEDS: CHLORHEXIDINE 0.12% ORAL rinse 473ML MT SCH (21:23)
--- NOTE | 2019-02-02 21:50 | NUR ---
Pain Management Patient C/O pain to incision sites and low back and is requesting medication. No respiratory depression or drowsiness noted. Fentanyl administered per MD order. Patient tolerated well with no adverse reaction noted.
--- NOTE | 2019-02-02 23:30 | NUR ---
Nourishment Patient stating he is thirsty. RN gave ice chips and he is tolerating well with no s/s of aspiration or coughing noted.
[2019-02-02] MEDS: ACETAMINOPHEN IV 1000 MG/100ML (10MG/ML) IV SCH (23:50)
[2019-02-03] VITALS (89 sets, daily range): BP systolic 20–140; BP diastolic 1–82
[2019-02-03] MEDS: MORPHINE SULFATE 4 MG/ML SYR/VIAL IV PRN ×2 (00:10→05:17)
--- NOTE | 2019-02-03 00:10 | NUR ---
Pain Management Patient C/O pain to left chest and low back and is requesting medication. No respiratory depression or drowsiness noted. Morphine administered per MD order. Patient tolerated well with no adverse reaction noted.
--- NOTE | 2019-02-03 00:45 | NUR ---
ST changes RN noted ST elevated to bedside monitor in lead II. 36-EKG taken 42-RN called Dr. Jones and informed of status of patient including gtts, vitals, UO, ongoing pain relieved with pain medication, and ST changes. He requested to see EKG. 44-EKG sent to Dr. Jones (no patient identifiers visible in message per HIPPA). He states no interventions necessary at this time as ST changes are secondary to right bundle branch block.
[2019-02-03] MEDS: NICARDIPINE 25MG/250ML BAG KIT 250 ML IV SCH ×5 (00:52→20:52)
[2019-02-03] MEDS: ALBUMIN 5% 250 ML IV SCH ×4 (00:59→15:46)
[2019-02-03] MEDS: ACCU-CHEK COMFORT CURVE STRIP VI SCH ×16 (00:59→20:24)
[2019-02-03 01:10] LABS: Basophils # (auto) 0 uL; Eosinophils # (auto) 0 uL; Hematocrit 30.1 % (41.0-53.0); Hemoglobin 10.2 g/dL (13.5-17.5); Lymphocytes # (auto) 0.5 uL; Lymphocytes % (auto) 4.6 % (10.0-50.0); Mean Corpuscular Hemoglobin 32.2 pg (28.0-32.0); Mean Corpuscular Hgb Conc. 33.9 g/dL (32.0-36.0); Monocytes # (auto) 0.7 uL; Monocytes % (auto) 5.9 % (0.0-12.0); Neutrophils % (auto) 89.5 % (37.0-80.0); Platelet Count (auto) 103 10^3/uL (140-450); Red Blood Cells 3.17 10^6/uL (4.5-5.90); Red Cell Distribution Width 14.2 % (11.8-14.3); White Blood Cell 11.2 10^3/uL (4.4-10.8)
[2019-02-03] MEDS: MILRINONE 20MG/100ML 100 ML IV SCH ×3 (01:24→22:16)
--- NOTE | 2019-02-03 01:30 | NUR ---
Ongoing Assessment Patient resting with no s/s of distress, states pain is under control at this time. HOB elevated to 30 degrees. Eyes closed with RR even and unlabored with equal rise and fall. Patient awakens easily to verbal stimulation and is neurologically intact and appropriate. HR SR with BBB on monitor with no ectopy. Incision sites remain benign. PA and arterial line waveforms are good. Nitro has been titrated up due to increasing blood pressure. chest tubes remain to suction with no clots, crepitus, or air leak noted. Blood sent to lab at 0000 due to potassium did not finish until 2315. F/C remains draining to gravity with no clots or kinks in tubing. Neurovascular status remain intact with palpable distal pulses x4 extremities, skin warm to touch, and capillary refill brisk. All fall and safety precauitons are intact. Patient taking ice chips frequently. Continue close monitoring.
[2019-02-03] MEDS: DexMEDEtomidine 400 MCG in D5W 5% 96 ML IV SCH (02:19)
[2019-02-03] MEDS: ceFAZolin 1GM 2 GM in D5W 5% 100 ML IV SCH ×3 (02:27→17:55)
--- NOTE | 2019-02-03 02:33 | NUR ---
Tachycardia HR sustaining greater than 100 sinus tachycardia. propranolol administered per MD order via slow IVP. patient tolerated well. HR now in the 80's,
[2019-02-03] MEDS: VANCOMYCIN 1GM/250ML 250 ML IV SCH ×2 (03:27→15:02)
--- NOTE | 2019-02-03 03:35 | NUR ---
Pain management Patient C/O pain. Toradol administered per MD order.
--- NOTE | 2019-02-03 04:00 | NUR ---
Blood sent to lab for K,Mg per protocol.
[2019-02-03 04:18] LABS: Basophils # (auto) 0 uL; Basophils % (auto) 0.1 % (0.0-2.0); Eosinophils # (auto) 0 uL; Hematocrit 26.1 % (41.0-53.0); Hemoglobin 8.8 g/dL (13.5-17.5); Lymphocytes # (auto) 0.6 uL; Mean Corpuscular Hemoglobin 32.1 pg (28.0-32.0); Mean Corpuscular Hgb Conc. 33.7 g/dL (32.0-36.0); Mean Corpuscular Volume 95.3 fL (80.0-100.0); Monocytes # (auto) 0.9 uL; Monocytes % (auto) 7.9 % (0.0-12.0); Neutrophils # (auto) 10.2 uL; Platelet Count (auto) 98 10^3/uL (140-450); Red Blood Cells 2.74 10^6/uL (4.5-5.90); Red Cell Distribution Width 14.1 % (11.8-14.3); White Blood Cell 11.7 10^3/uL (4.4-10.8)
[2019-02-03] MEDS ORDERED: InsuLIN REG 1unit/0.01ml Soln (100units/ml) ONE (04:21)
[2019-02-03 04:38] LABS: Calcium 7.6 mg/dL (8.5-10.1); Magnesium 2.9 mg/dL (1.6-2.6); Potassium 4.4 mmol/L (3.5-5.1)
[2019-02-03 04:40] LABS: BUN/Creatinine Ratio 15.4; Phosphorus 2.5 mg/dL (2.5-4.90)
[2019-02-03] MEDS: ACETAMINOPHEN IV 1000 MG/100ML (10MG/ML) IV SCH (05:27)
--- NOTE | 2019-02-03 05:30 | NUR ---
Bed bath/incisional care patient given complete CHG bath and all linens/gown changed. Chest tube insertion sites x3 cleansed with CHG Swabsticks and re-dressed with Petroleum soaked gauze, sterile gauze, and Medipore tape. Pacemaker insertion site cleansed with CHG Swabsticks and re-dressed with sterile gauze and medipore tape. Incision sites well approximated with no s/s of dehiscence or infection. Aquacel AG left in place per MD order.
--- NOTE | 2019-02-03 05:38 | NUR ---
EKG taken per open heart protocol.
--- NOTE | 2019-02-03 05:50 | NUR ---
Dr. Jones call Updated on gtts, vitals, pain control, urine output, hematuria, and rest of clinical picture. Also sent him picture of EKG (with no patient identifiers per HIPPA). Orders received and placed in computer.
--- NOTE | 2019-02-03 06:15 | NUR ---
PA Catheter discontinued Order to remove PA catheter in place. Catheter removed with balloon fully deflated. Patient tolerated well and no ectopy noted on screen. Hub covered with sterile cap.
[2019-02-03] MEDS: IPRATROPIUM BROM 0.5 MG/2.5ML INH SOL NEB SCH ×5 (06:16→22:13)
[2019-02-03] MEDS: ALBUTEROL SULF 2.5 MG/0.5ML(0.5%) NEB SOLN NEB SCH ×5 (06:16→22:13)
--- NOTE | 2019-02-03 06:30 | NUR ---
Arterial line removed Order to remove arterial line present. Left arterial line discontinued and pressure applied for five minutes.Pressure dressing applied. Radial pulse palpable. No active bleeding or hematoma present.
[2019-02-03] MEDS: CALCIUM GLUC 4.65meq/50ml D5AE 50 ML IV PRN (06:57)
--- NOTE | 2019-02-03 07:12 | NUR ---
Report given No changes or incidents to report. Pt in stable condition with no s/s of distress or pain. All vitals stable. Care endorsed to day shift RN.
--- NOTE | 2019-02-03 07:25 | NUR ---
OPEN Report Received from Odalys WOMACK, care assumed. Patient received laying on bed, HOB elevate to 30 degrees. Patient is awake, alert, and oriented x4. Right IJ dual lumen cordis present. Patient is NSR on the monitor with no ectopy. Pulses palpable radial and pedal bilaterally. BREE hose on lower extremities. Infusing Nitro, Insulin, and NS. Refer to IV spreadsheet for titration specifics. Patient able to move all extremities with equal strength. Pt answers all questions appropriately and follows commands. Atrial and ventricular epicardial wires connected to external pacemaker generator. Mid-sternal incision covered with Aquacel that is CDI. Chest tube insertion sites x3 connected to Atrium collection chambers at -[id number] suction draining sanguineous fluid with no clots, crepitus, or air leak noted. F/C intact and draining light rust/martínez colored urine to gravity (Dr. Jones is aware of hematuria and no interventions necessary at this time). See skin assessment. Bed locked in lowest position with call light within reach.
[2019-02-03] MEDS: ONDANSETRON HCL 4 MG/2 ML VIAL IV PRN (07:53)
--- NOTE | 2019-02-03 08:00 | NUR ---
NAUSEA Patient reports having nausea after Bipap treatment. PRN medications given.
[2019-02-03] MEDS: HYDROcodone-ACET 10/325MG TAB PO PRN ×3 (08:23→22:04)
--- NOTE | 2019-02-03 08:23 | NUR ---
PAIN Patient c/o pain. PRN [place] given per MD order.
--- NOTE | 2019-02-03 09:00 | NUR ---
INTAKE Patient refusing breakfast at this time. Patient only request ice chips.
--- NOTE | 2019-02-03 09:09 | NUR ---
MD VISIT at bedside assessing patient. He is aware of chest tube output, urine color, and gtts. MD aware of patients complaints of pain and current pain medication regime. MD reviewing labs and chart. No new orders received at this time.
--- NOTE | 2019-02-03 09:15 | NUR ---
MD VISIT at bedside assessing patient, chest tube output, urine output, gtts, and pain medications. MD made aware of AM lab results. MD wants pain medication given every three hours.
[2019-02-03] MEDS: DOCUSATE SOD 100 MG CAP PO SCH ×2 (09:21→21:48)
[2019-02-03] MEDS: FUROSEMIDE 20 MG TAB PO SCH (09:22)
[2019-02-03] MEDS: ASPirin 81 mg TAB PO SCH (09:22)
[2019-02-03] MEDS: CARVEDILOL 3.125 MG TAB PO SCH ×2 (09:22→21:49)
[2019-02-03] MEDS: CHLORHEXIDINE 0.12% ORAL rinse 473ML MT SCH ×2 (09:23→21:48)
[2019-02-03] MEDS: NITROGLYCERIN 0.4MG/HR TOPICAL PATCH TD SCH (09:25)
[2019-02-03] MEDS ORDERED: ceFAZolin 1GM 2 GM in D5W 5% 100 ML IV SCH (10:00)
[2019-02-03] MEDS ORDERED: PANTOPRAZOLE 40 MG/10 ML VIAL INJ IV SCH ×2 (10:00)
--- NOTE | 2019-02-03 10:00 | NUR ---
MEDICATION Patient able to swallow all PO medication without difficulty. Patient did have a brief episode of coughing due to water. Patient instructed to splint heart pillow when coughing. Patient able to clear throat and cough. Vitals stable. Pulse oxy 97% on Oxymizer 4 L. Patient denies shortness of breath. Will continue to monitor.
--- NOTE | 2019-02-03 10:10 | NUR ---
VISITOR Patient fran Richardson at bedside.
[2019-02-03] MEDS ORDERED: PANTOPRAZOLE 40 MG TAB PO ONE (10:15)
--- NOTE | 2019-02-03 11:00 | NUR ---
PAIN Patient c/o pain. PRN Toradol IV given per MD order.
[2019-02-03] MEDS: KETOROLAC TROMETH 15 mg/ml 1ML VL IV PRN ×2 (11:01→17:37)
--- NOTE | 2019-02-03 12:09 | NUR ---
ACTIVITY Patient dangled at bedside. Patient then ambulated to Addendum: 02/03/19 at 1211 by Morelia Mauricio RN ACTIVITY Patient dangled at bedside. Patient then ambulated 1/2 lap with physical therapist, portable monitor, walker, and oxygen at 4 L Oxymizer. patient tolerated activity fair. No shortness of breath noted. Patient medicated for pain prior to ambulation. Patient resting in cardiac chair. Call light within reach. Patient family at bedside.
--- NOTE | 2019-02-03 12:30 | NUR ---
INTAKE Patient refusing to eat lunch. Patient states he does not have appetite at this time. Patient was able to drink all of his Soy milk.
[2019-02-03] MEDS: NOREPINEPHRINE 8 MG/250ML KIT 250 ML IV SCH (13:54)
[2019-02-03 13:59] LABS: Basophils # (auto) 0 uL; Basophils % (auto) 0.1 % (0.0-2.0); Eosinophils # (auto) 0 uL; Hematocrit 26.1 % (41.0-53.0); Hemoglobin 8.8 g/dL (13.5-17.5); Mean Corpuscular Hgb Conc. 33.5 g/dL (32.0-36.0); Mean Corpuscular Volume 95.5 fL (80.0-100.0); Monocytes % (auto) 6.8 % (0.0-12.0); Neutrophils # (auto) 12.8 uL; Neutrophils % (auto) 86.1 % (37.0-80.0); Platelet Count (auto) 104 10^3/uL (140-450); Red Blood Cells 2.73 10^6/uL (4.5-5.90); Red Cell Distribution Width 14.2 % (11.8-14.3); White Blood Cell 14.8 10^3/uL (4.4-10.8)
--- NOTE | 2019-02-03 14:00 | NUR ---
MD OLGA Loredo notified of patients low trending blood pressure and albumin administration. He ordered for one unit of PRBC administration to be performed.
[2019-02-03 14:18] LABS: BUN/Creatinine Ratio 20.7; Calcium 8.1 mg/dL (8.5-10.1); Magnesium 2.8 mg/dL (1.6-2.6); Phosphorus 2.8 mg/dL (2.5-4.90); Potassium 4.5 mmol/L (3.5-5.1)
[2019-02-03] MEDS ORDERED: DEXTROSE (50%) 50ML SYRG IV PRN (14:30)
[2019-02-03] MEDS: PHENYLEPHRINE IV 250 ML IV SCH (14:35)
[2019-02-03] MEDS: SODIUM CHLORIDE 0.9% 500 ML IV SCH (14:35)
[2019-02-03] MEDS: NITROGLYCERIN 50MG/250ML 250 ML IV SCH (14:35)
--- NOTE | 2019-02-03 14:58 | NUR ---
BLOOD PRODUCTS One unit PRBC administration begun. No reactions noted at this time.
--- NOTE | 2019-02-03 15:00 | NUR ---
INTAKE Patient only requesting sips of water and ice chips at this time.
--- NOTE | 2019-02-03 16:00 | NUR ---
PAIN Patient c/o 10/10 pain. Patient repositioned in bed. PRN Senath given per MD order.
[2019-02-03] MEDS: InsuLIN REG 1unit/0.01ml Soln (100units/ml) SC SCH ×2 (16:29→20:00)
--- NOTE | 2019-02-03 16:43 | NUR ---
assessment Patient is a 73 year old male who had CABG. Patient is sitting in chair with his Yulisa at bedside. Per patient he will return home with his on discharge. Patient has a walking stick. Patients PCP is Dr Peraza. Patient informed me he feels safe returning home on discharge. Patient will need home health for PT and a rollator on discharge. Patient informed me he will have help on discharge. Patient has good family support. Patient verbalized understanding and agreed to discharge plan home. Addendum: 02/03/19 at 1646 by Gloria JOHNSON Amended: Links added.
--- NOTE | 2019-02-03 17:10 | NUR ---
ACTIVITY Patient ambulated 1 lap with physical therapist, portable monitor, walker, and oxygen at 6 L Oxymizer. Patient tolerated activity fair. No shortness of breath noted. Patient resting in cardiac chair. Call light within reach.
--- NOTE | 2019-02-03 17:40 | NUR ---
PAIN Patient c/o 10/10 pain after ambulation. PRN Toradol given per MD order.
--- NOTE | 2019-02-03 17:57 | NUR ---
INCISIONAL CARE Chest tube site dressing change performed. No signs of erythremia, bleeding, or clots noted. Patient tolerated well. No distress noted. BREE hose removed at this time.
--- NOTE | 2019-02-03 18:22 | NUR ---
IV insertion IV access obtained, via clean sterile technique by inserting 20 gauge catheter at right hand after 1 attempt. IV secured properly. No trauma to site. Patient tolerated well.
--- NOTE | 2019-02-03 19:16 | NUR ---
UPDATE Spoke with , notified him of urine color and output. He is aware of total chest tube outputs, pain management, and oxygenations. Orders received and placed.
--- NOTE | 2019-02-03 19:17 | NUR ---
REPORT Report given to Geeta WOMACK, care endorsed.
--- NOTE | 2019-02-03 19:30 | NUR ---
OPEN NOTES Assumed care of patient. Received report from VU Thibodeaux. Patient is seated on the recliner having his breathing treatment. VS stable. Has complains of pain in the back when moved. Patient is on Oxymizer at 5L/min saturations 91-93% will monitor Patient verbalized that he feels very tired and wants to sleep tonight. Encouraged to do deep breathing exercises which he said was a little bit difficult to do. Patient does not have much appetite today. He only wants to take soy milk tonight. Patient still has the Right IJ cordis with ongoing antibiotic now. Patient has 3 chest tubes connected to atrium suction at -20cm with sanguinous drainage, dressing dry and intact. Medial incision covered with Aquacel dressing. Patient has pacer AV wires but pacemaker set at AAI mode as the V wires not working properly as per report. Patient has Arnold catheter draining to brownish to dark red urine output with sediments. BREE stockings was just taken off at 1800hrs will continue to monitor
--- NOTE | 2019-02-03 20:20 | NUR ---
BACK TO BED Patient felt very tired and wants to rest for tonight. leg exercises done while sitting on the recliner. Assisted back to bed by this RN and another assist. Patient felt pain at upper back - massage done and helped relieve it. Encouraged to do slow deep breaths. Patient felt warm afterwards too - will adjust room temp.
--- NOTE | 2019-02-03 20:30 | NUR ---
HOSPITALIST ROUNDS SEEN BY AILEEN PATTON INFORMED OF PATIENT STATUS AND OUTPUTS INFORMED STILL ON OXYMIZER AT 6L/MIN
[2019-02-03] MEDS: AMIODARONE HCL 900 MG in DEXTROSE 500 ML IV SCH (21:02)
--- NOTE | 2019-02-03 22:00 | NUR ---
INCENTIVE SPIROMETRY INSTRUCTED PATIENT HOW TO USE IS PATIENT HAS SHALLOW BREATHS WAS ABLE TO DO UP TO LESS THAN 500MLS
--- NOTE | 2019-02-03 22:05 | NUR ---
RESPIRATORY PATIENT HAVING SOB AND PAIN AT THE BACK. PAIN MEDICATION GIVEN. RT INFORMED TO GIVE BREATHING TREATMENT REPOSITIONED IN BED Addendum: 02/03/19 at 2212 by Geeta Maurice RN RR 30/MIN, SPO2 92%
--- NOTE | 2019-02-03 23:00 | NUR ---
RE-ASSESS RESPIRATORY BIPAP TREATMENT DONE. LUNG SOUNDS CLEAR. PATIENT BREATHING MORE COMFORTABLY. STILL HAS PAIN ON UPPER BACK BUT LESSER. GOES BACK TO SLEEP AFTERWARDS WILL CONTINUE TO MONITOR Addendum: 02/04/19 at 0040 by Geeta Maurice RN PUT BACK ON OXYMIZER 5L/MIN
[2019-02-04] VITALS (69 sets, daily range): BP systolic 97–134; BP diastolic 47–78
--- NOTE | 2019-02-04 00:10 | NUR ---
RN NOTES PATIENT COUGHING BETTER NOW, NO PHLEGM COMING OUT. INSTRUCTED TO USE PILLOW FOR SPLINTING TO LESSEN PAIN. BREATHING BETTER. COMPLAINS OF BACK PAIN AGAIN 12/21 - WILL MEDICATE. VS STABLE. CHEST TUBES CHECKED , NO AIR LEAK OR CREPITUS NOTED. OXYMIZER KEPT AT 5L/MIN SPO2 ABOUT 93-95% NEWBY CATHETER OUTPUT GETTING YELLOWISH BUT STILL WITH BROWNISH SEDIMENTS PUT BACK BREE STOCKINGS ON BOTH LEGS WILL CONTINUE TO MONITOR
[2019-02-04] MEDS: ACCU-CHEK COMFORT CURVE STRIP VI SCH ×5 (00:12→22:40)
[2019-02-04] MEDS: KETOROLAC TROMETH 15 mg/ml 1ML VL IV PRN ×4 (00:23→19:01)
[2019-02-04] MEDS: ceFAZolin 1GM 2 GM in D5W 5% 100 ML IV SCH ×3 (00:55→16:44)
[2019-02-04] MEDS: NICARDIPINE 25MG/250ML BAG KIT 250 ML IV SCH ×5 (01:52→21:52)
[2019-02-04] MEDS: VANCOMYCIN 1GM/250ML 250 ML IV SCH (03:17)
[2019-02-04] MEDS: InsuLIN REG 1unit/0.01ml Soln (100units/ml) SC SCH ×5 (03:41→22:40)
--- NOTE | 2019-02-04 05:00 | NUR ---
OUTPUT OF 0500HRS CHEST TUBES X 3 = 90MLS URINE = 520MLS
[2019-02-04 05:07] LABS: Basophils # (auto) 0 uL; Basophils % (auto) 0.2 % (0.0-2.0); Eosinophils # (auto) 0 uL; Eosinophils % (auto) 0.2 % (0.0-7.0); Hemoglobin 9.1 g/dL (13.5-17.5); Lymphocytes # (auto) 1.1 uL; Lymphocytes % (auto) 9.7 % (10.0-50.0); Mean Corpuscular Hemoglobin 31.9 pg (28.0-32.0); Mean Corpuscular Hgb Conc. 33.6 g/dL (32.0-36.0); Mean Corpuscular Volume 94.9 fL (80.0-100.0); Monocytes # (auto) 0.9 uL; Monocytes % (auto) 7.9 % (0.0-12.0); Neutrophils # (auto) 9.2 uL; Platelet Count (auto) 85 10^3/uL (140-450); Red Blood Cells 2.84 10^6/uL (4.5-5.90); Red Cell Distribution Width 14.5 % (11.8-14.3); White Blood Cell 11.2 10^3/uL (4.4-10.8)
--- NOTE | 2019-02-04 05:15 | NUR ---
EKG 12 LEAD EKG DONE ORDERED POST CABG
[2019-02-04 05:26] LABS: Albumin 3.6 g/dL (3.4-5.0); Calcium 8.1 mg/dL (8.5-10.1); Potassium 4.2 mmol/L (3.5-5.1)
[2019-02-04 05:29] LABS: BUN/Creatinine Ratio 26.2; Bilirubin, Total 0.5 mg/dL (0.2-1.0); Total Protein 6.1 g/dL (6.4-8.2)
--- NOTE | 2019-02-04 05:30 | NUR ---
INCISIONAL CARE CHEST TUBE DRESSING CHANGED CLEANED WITH CHG SWABS COVERED WITH PETROLEUM GAUZE AND STERILE GAUZE WITH MEDIPORE TAPE PACER WIRE INSERTION SITE CLEANED WITH CHG SWABS WIRES ISOLATED
--- NOTE | 2019-02-04 05:40 | NUR ---
CORDIS DISCONTINUED RIGHT IJ CORDIS DISCONTINUED ORDERED PRESSURE DRESSING APPLIED WILL MONITOR
--- NOTE | 2019-02-04 05:45 | NUR ---
HYGIENE PATIENT CLEANED WITH CHG WIPES GOWN CHANGED ASSISTED TO RECLINER LINENS CHANGED
[2019-02-04] MEDS: HYDROcodone-ACET 10/325MG TAB PO PRN ×2 (05:46→15:10)
--- NOTE | 2019-02-04 06:45 | NUR ---
AMBULATION PATIENT AMBULATED X 1 LAP AROUND ICU COMPLAINS OF UPPER BACK PAIN WHILE WALKING FELT TIRED AFTERWARDS ASSISTED BACK TO RECLINER
--- NOTE | 2019-02-04 07:00 | NUR ---
OPENING NOTE REPORT RECEIVED FROM OFFSET PRESS ASSISTANT RN. PT UP IN CARDIAC CHAIR. VITALS SIGNS STABLE. NEWBY DRAINING TO GRAVITY, HEMATURIA NOTED PER REPORT. CHEST TUBES TO SUCTION, NO CREPITUS OR AIR LEAKS NOTED. STERNAL INCISION COVERED WITH AQUACEL DRESSING. NO DRAINAGE NOTED. ENDOSCOPIC SITES CLEAN DRY AND INTACT. PERIPHERAL IVS PATENT. CALL LIGHT IN REACH. WILL CONTINUE TO MONITOR. Addendum: 02/05/19 at 0908 by Renee Mcmahon RN NO ENDOSCOPIC SITES. NOTED RIGHT GROIN HEART CATHETER INCISION SITE. DRESSING DRY AND INTACT.
--- NOTE | 2019-02-04 07:00 | NUR ---
URINE PATIENT'S URINE NOTED TO BE HEMATURIC AGAIN AFTER MOVEMENT WILL INFORM DAYSHIFT RN AWAITING DR. WILLIAM'S CALL WILL CONTINUE TO MONITOR
[2019-02-04] MEDS: IPRATROPIUM BROM 0.5 MG/2.5ML INH SOL NEB SCH ×5 (07:04→22:08)
[2019-02-04] MEDS: ALBUTEROL SULF 2.5 MG/0.5ML(0.5%) NEB SOLN NEB SCH ×5 (07:04→22:08)
--- NOTE | 2019-02-04 07:50 | NUR ---
DOCTOR STEWART AT BEDSIDE TO ASSESS PT. MD ENCOURAGED BREATHING EXERCISES AND REVIEWED MOST RECENT X RAY. NO NEW ORDERS AT THIS TIME.
[2019-02-04] MEDS ORDERED: DEXTROSE (50%) 50ML SYRG IV PRN (08:30)
--- NOTE | 2019-02-04 08:30 | NUR ---
MD Dr. Dave at bedside to discuss plan of care. No new orders at this time.
[2019-02-04] MEDS: MILRINONE 20MG/100ML 100 ML IV SCH ×2 (09:00→19:32)
[2019-02-04] MEDS: NITROGLYCERIN 0.4MG/HR TOPICAL PATCH TD SCH (09:32)
[2019-02-04] MEDS: ASPirin 81 mg TAB PO SCH (09:34)
[2019-02-04] MEDS: PANTOPRAZOLE 40 MG TAB PO SCH (09:35)
[2019-02-04] MEDS: DOCUSATE SOD 100 MG CAP PO SCH ×2 (09:35→22:00)
[2019-02-04] MEDS: ASCORBIC ACID 500 MG TAB PO SCH ×2 (09:35→22:00)
[2019-02-04] MEDS: CARVEDILOL 3.125 MG TAB PO SCH ×2 (09:36→22:00)
[2019-02-04] MEDS: FUROSEMIDE 20 MG TAB PO SCH (09:36)
--- NOTE | 2019-02-04 09:45 | NUR ---
AMBULATION Physical therapy at bedside to assist pt with ambulation. Pt completed two laps around nurses station with walker, connected to portable monitor and oxygen. Pt tolerated well, vitals stable. Pt assisted to cardiac chair, connected to bedside monitor. No signs of distress noted. Pt complained of pain, medications ordered as ordered. Will continue to monitor.
[2019-02-04] MEDS: CHLORHEXIDINE 0.12% ORAL rinse 473ML MT SCH ×2 (10:13→22:00)
[2019-02-04] MEDS: Glucerna Carbsteady SHAKE Vanilla 8oz PO SCH ×2 (12:00→18:00)
--- NOTE | 2019-02-04 12:00 | NUR ---
AMBULATION Physical therapy at bedside to assist pt with ambulation. Pt completed one lap around nurses station with walker, connected to portable monitor and oxygen. Pt tolerated well, vitals stable. Pt assisted to cardiac chair, connected to bedside monitor. Will continue to monitor.
--- NOTE | 2019-02-04 12:24 | NUR ---
Nutrition Follow-up Notes Wt.: 86.4 kg Pt was with PT and RNs by beside to help pt ambulate. per records pt had CABG on 02/02 and successfully extubated. pt is currently on CCHO 60 gm cardiac diet with Glucerna 1ccarton tid with inadequate PO of < 505 x 3 per RN doc Est. Needs: 1700 kcal to 2150 kcal (20-25 kcal/kgBW), 68 gms to 85 gms pro (0.8-1.0 gms/kgBW). Will continue to monitor pertinent labs and reassess nutrient need prn Labs: BUN 34 H, GLU 134 H CA 8.1 L. Skin: Filipe scale 16, mod risk, incision at site of sx per auto machinist. GI: Pt had 1 BM on 01/28/19 per auto machinist. PES: Altered nutrition related lab values r/t acute/chronic medical condition aeb hyperglycemia, elev. HbA1c, LFTs Will continue to monitor PO intake, skin status, pertinent labs and weight trend. F/u in 3-5 days. Rec.: 1.) Continue close supervision with meals 2.) Refer to RD for further nutrition education and weight monitoring upon discharged. 3.) Continue current plan of care.
--- NOTE | 2019-02-04 13:34 | NUR ---
AT BEDSIDE DR. WILLIAM AT BEDSIDE TO ASSESS PT. MD MADE AWARE OF PT AMBULATION THROUGHOUT SHIFT. PER MD START PT ON IRON IVPB. ALL ORDERS NOTED IN CHART.
[2019-02-04] MEDS: NOREPINEPHRINE 8 MG/250ML KIT 250 ML IV SCH (14:52)
[2019-02-04] MEDS: SODIUM CHLORIDE 0.9% 500 ML IV SCH (14:52)
[2019-02-04] MEDS: NITROGLYCERIN 50MG/250ML 250 ML IV SCH (14:52)
[2019-02-04] MEDS: PHENYLEPHRINE IV 250 ML IV SCH (14:52)
[2019-02-04] MEDS ORDERED: SODIUM FERR GLUC 62.5MG/5ML 125 MG in SODIUM CHL 0.9% 100 ML IV ONE (18:30)
--- NOTE | 2019-02-04 18:40 | NUR ---
AMBULATION PATIENT AMBULATED AROUND NURSES STATION CONNECTED TO PORTABLE MONITOR AND OXYGEN. PATIENT COMPLETED 1 LAP AROUND NURSES STATION. PATIENT TOLERATED WELL. ASSISTED BACK TO BED AND CONNECTED TO BEDSIDE MONITOR. ADMINISTERED PAIN MEDICATIONS ORDERED FOR COMPLAINTS OF PAIN. WILL CONTINUE TO MONITOR.
[2019-02-04] MEDS: AMIODARONE HCL 900 MG in DEXTROSE 500 ML IV SCH (21:02)
[2019-02-05] VITALS (46 sets, daily range): BP systolic 93–151; BP diastolic 46–85
[2019-02-05] MEDS: NICARDIPINE 25MG/250ML BAG KIT 250 ML IV SCH ×5 (02:52→22:52)
[2019-02-05] MEDS: HYDROcodone-ACET 10/325MG TAB PO PRN ×2 (05:38→11:44)
--- NOTE | 2019-02-05 05:54 | NUR ---
PT REFUSED TX AT THIS TIME, STATING HE DOES NOT LIKE TO WEAR THE BIPAP. RN BEDSIDE STATING SHE WILL ATTEMPT TO GET AN ORDER FOR EZ-PAP NEB FOR TX INSTEAD. NO SIGNS OF RESPIRATORY DISTRESS NOTED. PT C/O PAIN WITH INHALE DUE TO INCISION. ON 4L OXYMIZER SPO2 91 HR 96 RR 26. PT AWARE THAT I WILL RETURN FOR NEXT SCHEDULED BREATHING TX. WILL CONTINUE TO MONITOR.
[2019-02-05] MEDS: IPRATROPIUM BROM 0.5 MG/2.5ML INH SOL NEB SCH ×5 (05:59→21:12)
[2019-02-05] MEDS: ALBUTEROL SULF 2.5 MG/0.5ML(0.5%) NEB SOLN NEB SCH ×5 (06:00→21:12)
[2019-02-05] MEDS: InsuLIN REG 1unit/0.01ml Soln (100units/ml) SC SCH ×4 (06:00→23:06)
[2019-02-05] MEDS: ACCU-CHEK COMFORT CURVE STRIP VI SCH ×4 (06:00→23:05)
[2019-02-05] MEDS: MILRINONE 20MG/100ML 100 ML IV SCH ×2 (06:04→16:36)
--- NOTE | 2019-02-05 07:15 | NUR ---
REPORT RECEIVED FROM CORRECTIONAL MEDICINE PHYSICIAN NURSE. PATIENT UP IN CARDIAC CHAIR AT THIS TIME. RESPIRATIONS EVEN AND UNLABORED. NO SIGNS OF ACUTE DISTRESS NOTED. NEWBY CATHETER TO GRAVITY DRAINING PINK TINGED WITH SEDIMENT. CHEST TUBES TO SUCTION WITH NO CREPITUS OR AIR LEAK NOTED. PACER WIRES INTACT AND CONNECTED TO PATIENT, PATIENT HAS OWN INTRINSIC RATE AT THIS TIME. CALL LIGHT IN REACH, WILL CONTINUE TO MONITOR.
--- NOTE | 2019-02-05 07:45 | NUR ---
DRESSING CHANGE DRESSINGS CHANGED TO 3 CHEST TUBE SITES, CLEANED WITH CHLORHEXIDINE SWABS AND APPLIED PETROLEUM GAUZE, STERILE GAUZE AND MEDIPORE TAPE. REMOVED AQUACEL DRESSING TO STERNAL INCISION. CLEANED AROUND INCISION WITH CHLORHEXIDINE SWABS AND APPLIED PRIMAPORE DRESSING. STERNAL INCISION CLEAN AND DRY, NO REDNESS, WELL APPROXIMATED. PATIENT TOLERATED WELL. WILL CONTINUE TO MONITOR.
[2019-02-05] MEDS: Glucerna Carbsteady SHAKE Vanilla 8oz PO SCH ×3 (08:00→18:00)
--- NOTE | 2019-02-05 08:00 | NUR ---
PATIENT INSTRUCTED ON INCENTIVE SPIROMETER. PATIENT DEMONSTRATED PROPER USE AND ACCOMPLISHED 1000ML ON INCENTIVE SPIROMETER.
[2019-02-05 08:01] LABS: Magnesium 2.7 mg/dL (1.6-2.6); Potassium 3.9 mmol/L (3.5-5.1)
--- NOTE | 2019-02-05 08:30 | NUR ---
AMBULATION PATIENT AMBULATED AROUND NURSES STATION CONNECTED TO PORTABLE MONITOR AND OXYGEN. PATIENT COMPLETED 6 LAPS AROUND THE NURSE STATION. PATIENT ASSISTED TO CARDIAC CHAIR AND PLACED ON BEDSIDE MONITOR. VITAL SIGNS STABLE. WILL CONTINUE TO MONITOR.
--- NOTE | 2019-02-05 09:03 | NUR ---
DR Haresh HUGHES AT BEDSIDE TO ASSESS PATIENT AND DISCUSS PLAN OF CARE. ALL ORDERS NOTED IN CHART.
--- NOTE | 2019-02-05 09:35 | NUR ---
MORNING EKG COMPLETED.
[2019-02-05] MEDS: CHLORHEXIDINE 0.12% ORAL rinse 473ML MT SCH ×2 (10:06→22:00)
[2019-02-05] MEDS: ASCORBIC ACID 500 MG TAB PO SCH ×2 (10:09→22:00)
[2019-02-05] MEDS: NITROGLYCERIN 0.4MG/HR TOPICAL PATCH TD SCH (10:09)
[2019-02-05] MEDS: PANTOPRAZOLE 40 MG TAB PO SCH (10:10)
[2019-02-05] MEDS: FUROSEMIDE 20 MG TAB PO SCH ×2 (10:10→22:00)
[2019-02-05] MEDS: ASPirin 81 mg TAB PO SCH (10:10)
[2019-02-05] MEDS: CARVEDILOL 3.125 MG TAB PO SCH ×2 (10:10→22:00)
[2019-02-05] MEDS: DOCUSATE SOD 100 MG CAP PO SCH ×2 (10:10→22:00)
[2019-02-05] MEDS: fentaNYL CITRATE 100 MCG/2 ML VL IV PRN (10:25)
--- NOTE | 2019-02-05 11:02 | NUR ---
PT Called VU Duran and stated patient already ambulated 6 laps in ICU. Addendum: 02/05/19 at 1104 by ALVARO HAM PTT Amended: Links added.
--- NOTE | 2019-02-05 11:45 | NUR ---
AMBULATION PATIENT AMBULATED AROUND NURSES STATION CONNECTED TO PORTABLE MONITOR AND OXYGEN. PATIENT COMPLETED 7 LAPS AROUND THE NURSE STATION. PATIENT ASSISTED TO CARDIAC CHAIR AND PLACED ON BEDSIDE MONITOR. VITAL SIGNS STABLE. WILL CONTINUE TO MONITOR.
[2019-02-05] MEDS: SODIUM FERR GLUC 62.5MG/5ML 125 MG in SODIUM CHL 0.9% 100 ML IV SCH (12:07)
--- NOTE | 2019-02-05 12:50 | NUR ---
DR WILLIAM AT BEDSIDE TO ASSESS PATIENT AND DISCUSS PLAN OF CARE. NO NEW ORDERS AT THIS TIME.
--- NOTE | 2019-02-05 14:00 | NUR ---
PATIENT INSTRUCTED ON INCENTIVE SPIROMETER. PATIENT DEMONSTRATED PROPER USE AND ACCOMPLISHED 1000ML ON INCENTIVE SPIROMETER.
[2019-02-05] MEDS: PHENYLEPHRINE IV 250 ML IV SCH (14:52)
[2019-02-05] MEDS: SODIUM CHLORIDE 0.9% 500 ML IV SCH (14:52)
[2019-02-05] MEDS: NITROGLYCERIN 50MG/250ML 250 ML IV SCH (14:52)
[2019-02-05] MEDS: NOREPINEPHRINE 8 MG/250ML KIT 250 ML IV SCH (14:52)
--- NOTE | 2019-02-05 16:11 | NUR ---
SPOKE TO DR WILLIAM TO INFORM OF INCREASED NOTED PINK TINGE IN URINE. PER MD CONTINUE TO MONITOR. ADMINISTER 40MG LASIX PO. ORDERS NOTED IN CHART.
[2019-02-05] MEDS ORDERED: FUROSEMIDE 20 MG TAB PO ONE (16:30)
--- NOTE | 2019-02-05 17:00 | NUR ---
AMBULATION PATIENT AMBULATED AROUND NURSES STATION CONNECTED TO PORTABLE MONITOR AND OXYGEN. PATIENT COMPLETED 3 LAPS AROUND THE NURSE STATION. PATIENT ASSISTED TO CARDIAC CHAIR AND PLACED ON BEDSIDE MONITOR. VITAL SIGNS STABLE. WILL CONTINUE TO MONITOR.
--- NOTE | 2019-02-05 20:30 | NUR ---
PT. IN CHAIR AND REQUESTING TO GET INTO BED; ASSISTED PT. TO BED; PT. TOLERATED FAIRLY; WILL MEDICATE FOR PAIN; CONT. TO MONITOR.
[2019-02-05] MEDS: AMIODARONE HCL 900 MG in DEXTROSE 500 ML IV SCH (21:02)
[2019-02-05] MEDS: POTASSIUM CHL 20 Meq TABLET PO SCH (22:00)
[2019-02-06] VITALS (24 sets, daily range): BP systolic 91–153; BP diastolic 45–73
[2019-02-06] MEDS: MILRINONE 20MG/100ML 100 ML IV SCH ×2 (03:08→13:40)
--- NOTE | 2019-02-06 03:50 | NUR ---
PT. REQUESTING TO GET TO BEDSIDE COMMODE; ASSISTED PT. ONTO BEDSIDE COMMODE; INSTRUCTED PT NOT TO STRAIN WHILE USING TOILET-JUST RELAX AND TAKE HIS TIME; WILL CONT. TO MONITOR.
[2019-02-06] MEDS: NICARDIPINE 25MG/250ML BAG KIT 250 ML IV SCH ×5 (03:52→23:52)
[2019-02-06 04:06] LABS: Basophils # (auto) 0 uL; Basophils % (auto) 0.3 % (0.0-2.0); Eosinophils # (auto) 0.3 uL; Eosinophils % (auto) 2.6 % (0.0-7.0); Hematocrit 25.1 % (41.0-53.0); Hemoglobin 8.7 g/dL (13.5-17.5); Lymphocytes # (auto) 1.2 uL; Lymphocytes % (auto) 11.9 % (10.0-50.0); Mean Corpuscular Hemoglobin 32.5 pg (28.0-32.0); Mean Corpuscular Hgb Conc. 34.6 g/dL (32.0-36.0); Mean Corpuscular Volume 94.2 fL (80.0-100.0); Monocytes % (auto) 9.6 % (0.0-12.0); Neutrophils # (auto) 7.6 uL; Neutrophils % (auto) 75.6 % (37.0-80.0); Platelet Count (auto) 134 10^3/uL (140-450); Red Blood Cells 2.67 10^6/uL (4.5-5.90); Red Cell Distribution Width 14.1 % (11.8-14.3)
[2019-02-06 04:17] LABS: Albumin 3.5 g/dL (3.4-5.0); Calcium 8.5 mg/dL (8.5-10.1); Potassium 3.7 mmol/L (3.5-5.1)
[2019-02-06 04:20] LABS: BUN/Creatinine Ratio 25.5
[2019-02-06 04:22] LABS: Bilirubin, Total 0.6 mg/dL (0.2-1.0); Total Protein 6.8 g/dL (6.4-8.2)
--- NOTE | 2019-02-06 05:00 | NUR ---
PT. JUST PASSING GAS; ASSISTED PT. TO CHAIR; PROVIDED PT. WITH CUP OF WATER AND CUP OF GLUCERNA; WANTS TO REST IN CHAIR FOR NOW AND WILL WALK AFTER BREAKFAST.
[2019-02-06] MEDS: HYDROcodone-ACET 10/325MG TAB PO PRN ×2 (05:12→20:40)
[2019-02-06] MEDS: InsuLIN REG 1unit/0.01ml Soln (100units/ml) SC SCH ×3 (06:00→18:10)
[2019-02-06] MEDS: ACCU-CHEK COMFORT CURVE STRIP VI SCH ×3 (06:00→18:10)
[2019-02-06] MEDS: ALBUTEROL SULF 2.5 MG/0.5ML(0.5%) NEB SOLN NEB SCH ×5 (06:26→22:00)
[2019-02-06] MEDS: IPRATROPIUM BROM 0.5 MG/2.5ML INH SOL NEB SCH ×5 (06:26→22:00)
[2019-02-06] MEDS: fentaNYL CITRATE 100 MCG/2 ML VL IV PRN (07:59)
[2019-02-06] MEDS: Glucerna Carbsteady SHAKE Vanilla 8oz PO SCH ×3 (08:27→18:30)
--- NOTE | 2019-02-06 08:50 | NUR ---
Resumed care at 0700, orders reviewed and ongoing assessments being done. S/P AVR with CABG x 1, post-op day 4. Upon arrival already out of bed and sitting in chair. Alert and interacting appropriately. In no acute distress but c/o of midsternal surgical pain. Is able to move all extremities with sensation intact and feeling some numbness to right hand and achy on the left side of his neck. Reviewed post op plan of care, all questioned answered. Declined breakfast, reinforced the importance of nutrition for healing. Served nutritional supplement drink. IV removal to right AC IV DC'd with sterile technique, catheter fully intact. Pressure dressing applied to site. Patient tolerated procedure well. IV insertion at 0810 IV access obtained, via clean sterile technique by inserting 20 gauge catheter at after attempt. IV secured properly. No trauma to site. Patient tolerated procedure well.
[2019-02-06] MEDS: PANTOPRAZOLE 40 MG TAB PO SCH (09:59)
[2019-02-06] MEDS: POTASSIUM CHL 20 Meq TABLET PO SCH ×2 (09:59→22:00)
[2019-02-06] MEDS: DOCUSATE SOD 100 MG CAP PO SCH ×2 (09:59→22:00)
[2019-02-06] MEDS: ASCORBIC ACID 500 MG TAB PO SCH ×2 (10:00→22:00)
[2019-02-06] MEDS: FUROSEMIDE 20 MG TAB PO SCH ×2 (10:00→22:00)
[2019-02-06] MEDS: ASPirin 81 mg TAB PO SCH (10:00)
[2019-02-06] MEDS: CARVEDILOL 3.125 MG TAB PO SCH ×2 (10:01→22:00)
[2019-02-06] MEDS: NITROGLYCERIN 0.4MG/HR TOPICAL PATCH TD SCH (10:02)
[2019-02-06] MEDS: CHLORHEXIDINE 0.12% ORAL rinse 473ML MT SCH ×2 (10:13→22:00)
[2019-02-06] MEDS: SODIUM FERR GLUC 62.5MG/5ML 125 MG in SODIUM CHL 0.9% 100 ML IV SCH (13:00)
[2019-02-06] MEDS: NITROGLYCERIN 50MG/250ML 250 ML IV SCH (14:52)
[2019-02-06] MEDS: NOREPINEPHRINE 8 MG/250ML KIT 250 ML IV SCH (14:52)
[2019-02-06] MEDS: PHENYLEPHRINE IV 250 ML IV SCH (14:52)
[2019-02-06] MEDS: SODIUM CHLORIDE 0.9% 500 ML IV SCH (14:52)
--- NOTE | 2019-02-06 15:48 | NUR ---
Dr. Jones was in at noon to round. Reviewed patient data and decided to remove chest tubes today. Assisted back to bed from chair and Dr. Jones removed all three chest tubes without incident. Petroleum and 4x4 gauze applied and secured with foam tape. Chest xray was done and has been in no acute distress since removal of tubes. Noted increase in bloody urine. No complaint of discomfort from Arnold. Renal ultrasound ordered and done at bedside at 1235. Has been resting in bed and able to take a nap (per patient had a bad night and didn't sleep much last night). at bedside and son was in early today to visit. Addendum: 02/06/19 at 1657 by Trish Hutton RN RN Midsternal dressing was also removed when Dr. Jones removed chest tubes. Incision well approximated with no drainage. Cleansed area and redressed.
--- NOTE | 2019-02-06 16:57 | NUR ---
At 1620 walked around the nurses station 9 times without incident. Earlier walked 9 laps with Domo ANDERSON. Returned to room. and grandson at bedside, watching video (what to expect when leaving the Hospital).
--- NOTE | 2019-02-06 19:03 | NUR ---
Notified Dr. Jones regarding chest xary result post removal of chest tubes, small 5% right apical pneumothorax. In no acute distress and remains on 3L 02 via nasal cannula.
--- NOTE | 2019-02-06 20:41 | NUR ---
pt. assisted back in bed from chair as per pt. request; BREE hose removed; pt. c/o pain and medicated with norco 10/325 po; will cont. to monitor pt.
[2019-02-06] MEDS: AMIODARONE HCL 900 MG in DEXTROSE 500 ML IV SCH (21:02)
[2019-02-07] VITALS (28 sets, daily range): BP systolic 81–127; BP diastolic 43–97
[2019-02-07] MEDS: MILRINONE 20MG/100ML 100 ML IV SCH ×2 (00:12→10:44)
[2019-02-07 03:52] LABS: Basophils # (auto) 0 uL; Basophils % (auto) 0.3 % (0.0-2.0); Eosinophils # (auto) 0.3 uL; Eosinophils % (auto) 4.4 % (0.0-7.0); Hematocrit 25.3 % (41.0-53.0); Hemoglobin 8.8 g/dL (13.5-17.5); Lymphocytes # (auto) 0.9 uL; Lymphocytes % (auto) 14.5 % (10.0-50.0); Mean Corpuscular Hemoglobin 32.9 pg (28.0-32.0); Mean Corpuscular Hgb Conc. 34.8 g/dL (32.0-36.0); Mean Corpuscular Volume 94.5 fL (80.0-100.0); Monocytes # (auto) 0.8 uL; Monocytes % (auto) 12.3 % (0.0-12.0); Neutrophils # (auto) 4.4 uL; Neutrophils % (auto) 68.5 % (37.0-80.0); Platelet Count (auto) 148 10^3/uL (140-450); Red Blood Cells 2.68 10^6/uL (4.5-5.90); Red Cell Distribution Width 13.8 % (11.8-14.3); White Blood Cell 6.4 10^3/uL (4.4-10.8)
[2019-02-07 04:10] LABS: Albumin 3.2 g/dL (3.4-5.0); Calcium 8.6 mg/dL (8.5-10.1); Potassium 3.8 mmol/L (3.5-5.1)
[2019-02-07 04:15] LABS: Bilirubin, Total 0.5 mg/dL (0.2-1.0); Total Protein 6.5 g/dL (6.4-8.2)
[2019-02-07] MEDS: NICARDIPINE 25MG/250ML BAG KIT 250 ML IV SCH ×3 (04:52→14:52)
[2019-02-07] MEDS: IPRATROPIUM BROM 0.5 MG/2.5ML INH SOL NEB SCH ×5 (05:42→22:50)
[2019-02-07] MEDS: ALBUTEROL SULF 2.5 MG/0.5ML(0.5%) NEB SOLN NEB SCH ×5 (05:42→22:50)
[2019-02-07] MEDS: InsuLIN REG 1unit/0.01ml Soln (100units/ml) SC SCH ×5 (06:00→23:26)
[2019-02-07] MEDS: ACCU-CHEK COMFORT CURVE STRIP VI SCH ×5 (06:26→23:26)
--- NOTE | 2019-02-07 07:33 | NUR ---
pt. had 925ml urine output, dk. reddish, sediment.
[2019-02-07] MEDS: Glucerna Carbsteady SHAKE Vanilla 8oz PO SCH ×3 (08:20→18:00)
[2019-02-07] MEDS: CHLORHEXIDINE 0.12% ORAL rinse 473ML MT SCH ×2 (09:53→22:00)
--- NOTE | 2019-02-07 10:01 | NUR ---
Resumed care at 0700, orders reviewed and ongoing assessments being done. S/P AVR with CABG x 1, post-op day 5. Upon arrival assisted out of bed to chair without incident. Able to mobilize better today, chest tubes were removed yesterday. Alert and interacting appropriately. In no acute distress but continues c/o of midsternal surgical pain, medicating as appropriate. Is able to move all extremities with sensation intact and feeling some numbness to right hand still but not as much as yesterday. Better appetite this morning and ate 75% of breakfast. Dr. Tha Dave was in at 0800 this am, will discontinue Arnold catheter per Dr. Dave. Reviewed post op plan of care, all questioned answered. Receiving his BIPAP treatment with bronchodilators at this time.
[2019-02-07] MEDS: PANTOPRAZOLE 40 MG TAB PO SCH (10:23)
[2019-02-07] MEDS: POTASSIUM CHL 20 Meq TABLET PO SCH ×2 (10:23→22:00)
[2019-02-07] MEDS: ASCORBIC ACID 500 MG TAB PO SCH ×2 (10:23→22:00)
[2019-02-07] MEDS: FUROSEMIDE 20 MG TAB PO SCH ×2 (10:24→22:00)
[2019-02-07] MEDS: NITROGLYCERIN 0.4MG/HR TOPICAL PATCH TD SCH (10:25)
[2019-02-07] MEDS: CARVEDILOL 3.125 MG TAB PO SCH ×2 (10:25→22:00)
[2019-02-07] MEDS: ASPirin 81 mg TAB PO SCH (10:26)
[2019-02-07] MEDS: DOCUSATE SOD 100 MG CAP PO SCH ×2 (10:26→22:00)
--- NOTE | 2019-02-07 12:19 | NUR ---
Arnold catheter dc'd at 1110 am Order to discontinue Arnold catheter. Arnold dc'd with clean technique following deflation of balloon. Patient tolerated well with no complaints of pain. Continue care. Cy RETAIL STOCKER in unit approximately at 1120 am. Assisted with ambulation. Utilizing front roller walker and walked around the nursed station 8 times. Stopped for two rest periods. Does require the use of oxygen during ambulation. Desaturated on room air, <90%. Returned to room, up in chair. at bedside visiting.
[2019-02-07] MEDS: SODIUM FERR GLUC 62.5MG/5ML 125 MG in SODIUM CHL 0.9% 100 ML IV SCH (14:00)
[2019-02-07] MEDS: NOREPINEPHRINE 8 MG/250ML KIT 250 ML IV SCH (14:52)
[2019-02-07] MEDS: PHENYLEPHRINE IV 250 ML IV SCH (14:52)
[2019-02-07] MEDS: NITROGLYCERIN 50MG/250ML 250 ML IV SCH (14:52)
[2019-02-07] MEDS: SODIUM CHLORIDE 0.9% 500 ML IV SCH (14:52)
--- NOTE | 2019-02-07 17:28 | NUR ---
In chair watching TV in no acute distress. Son Donn at bedside. Earlier walked around the nurses station again. 14 laps without rest periods, no distress during ambulation. Removed dressing to midsternal incision. Well approximated, no drainage, some ecchymosis. Cleaned area and kept open to air.
--- NOTE | 2019-02-07 20:15 | NUR ---
patient used urinal and 300ml urine output-dark red, sediment, x1 small clot, and sediment; will cont. to monitor.
--- NOTE | 2019-02-07 20:30 | NUR ---
patient up out of chair and walked around icu nursing station a total of 7 laps and tolerated well; pt. stating after lap 7 that he just did not the energy to walk more; assisted patient into bed as per his request; will cont. to monitor.
[2019-02-08] VITALS (19 sets, daily range): BP systolic 97–143; BP diastolic 44–89
[2019-02-08 03:44] LABS: Basophils # (auto) 0 uL; Basophils % (auto) 0.5 % (0.0-2.0); Eosinophils # (auto) 0.3 uL; Eosinophils % (auto) 3.9 % (0.0-7.0); Hematocrit 26.3 % (41.0-53.0); Hemoglobin 9.1 g/dL (13.5-17.5); Lymphocytes % (auto) 11.4 % (10.0-50.0); Mean Corpuscular Hgb Conc. 34.7 g/dL (32.0-36.0); Mean Corpuscular Volume 95.1 fL (80.0-100.0); Monocytes # (auto) 1.2 uL; Monocytes % (auto) 13.2 % (0.0-12.0); Neutrophils # (auto) 6.3 uL; Platelet Count (auto) 170 10^3/uL (140-450); Red Blood Cells 2.76 10^6/uL (4.5-5.90); Red Cell Distribution Width 14.3 % (11.8-14.3); White Blood Cell 8.9 10^3/uL (4.4-10.8)
[2019-02-08 04:00] LABS: Potassium 4.5 mmol/L (3.5-5.1)
--- NOTE | 2019-02-08 05:30 | NUR ---
pt. used urinal and 350ml urine output-dark davis and clear; will cont. to monitor.
[2019-02-08] MEDS: InsuLIN REG 1unit/0.01ml Soln (100units/ml) SC SCH ×3 (06:00→18:00)
[2019-02-08] MEDS: ACCU-CHEK COMFORT CURVE STRIP VI SCH ×3 (06:00→18:00)
[2019-02-08] MEDS: ALBUTEROL SULF 2.5 MG/0.5ML(0.5%) NEB SOLN NEB SCH ×5 (06:44→21:49)
[2019-02-08] MEDS: IPRATROPIUM BROM 0.5 MG/2.5ML INH SOL NEB SCH ×5 (06:44→21:50)
--- NOTE | 2019-02-08 06:46 | NUR ---
pt. up out of bed and ambulated x7 laps around icu nursing station; pt. tolerated well; pt. assisted to chair and RT providing breathing treatment.
--- NOTE | 2019-02-08 08:09 | NUR ---
IV insertion IV access obtained, via clean sterile technique by inserting 20 gauge catheter at after 1 attemp TO R AC. IV secured properly. No trauma to site. Patient tolerated well. NOTE:
[2019-02-08] MEDS: Glucerna Carbsteady SHAKE Vanilla 8oz PO SCH ×3 (08:11→18:18)
--- NOTE | 2019-02-08 08:35 | NUR ---
DR. Haresh HUGHES AT BEDSIDE
--- NOTE | 2019-02-08 09:35 | NUR ---
AMBULATION PATIENT AMBULATED 15 TIMES AROUND NURSING STATION. PATIENT TOLERATED WELL. PATIENT PLACED BACK IN BEDSIDE CHAIR
[2019-02-08] MEDS: NITROGLYCERIN 0.4MG/HR TOPICAL PATCH TD SCH (10:00)
[2019-02-08] MEDS: PANTOPRAZOLE 40 MG TAB PO SCH (10:06)
[2019-02-08] MEDS: DOCUSATE SOD 100 MG CAP PO SCH ×2 (10:06→21:40)
[2019-02-08] MEDS: ASPirin 81 mg TAB PO SCH (10:06)
[2019-02-08] MEDS: CHLORHEXIDINE 0.12% ORAL rinse 473ML MT SCH ×2 (10:07→21:40)
[2019-02-08] MEDS: ASCORBIC ACID 500 MG TAB PO SCH ×2 (10:07→21:42)
[2019-02-08] MEDS: FUROSEMIDE 20 MG TAB PO SCH ×2 (10:07→21:42)
[2019-02-08] MEDS: CARVEDILOL 3.125 MG TAB PO SCH ×2 (10:07→21:41)
[2019-02-08] MEDS: POTASSIUM CHL 20 Meq TABLET PO SCH ×2 (10:07→21:41)
--- NOTE | 2019-02-08 10:52 | NUR ---
DR. WILLIAM AT BEDSIDE
[2019-02-08] MEDS: SODIUM FERR GLUC 62.5MG/5ML 125 MG in SODIUM CHL 0.9% 100 ML IV SCH (12:18)
--- NOTE | 2019-02-08 12:26 | NUR ---
PT Called AUTOMOTIVE SALES PROFESSIONAL Porfirio and stated patient ambulated 15 laps around the ICU nurses station. Addendum: 02/08/19 at 1227 by ALVARO HAM PTT Amended: Links added.
--- NOTE | 2019-02-08 12:51 | NUR ---
re-assessment consult home health for PT, wound, medication management rollator walker. order has been faxed to [facility] ph:[phone] fx: [phone] Per [facility] service to start 24-48 hrs post d/c. Rollator faxed to ph:[phone] fx: [phone] and per [place] Rollator to be delivered to bedside today and Marilee Chadwick notified. Addendum: 02/10/19 at 1252 by Gloria JOHNSON Amended: Links added.
--- NOTE | 2019-02-08 12:53 | NUR ---
SON AT BEDSIDE UPDATED ON PATIENT STATUS. ALL QUESTIONS AND CONCERNS ADDRESSED AT THIS TIME
[2019-02-08 13:05] LABS: Partial Thromboplastin Time 27.9 sec (23.64-32.05)
--- NOTE | 2019-02-08 14:32 | NUR ---
PATIENT AMBULATED 13 LAPS AROUND NURSING STATION PATIENT BACK TO BEDSIDE CHAIR
--- NOTE | 2019-02-08 15:07 | NUR ---
REPORT GIVEN TO MERY WOMACK TO ASSUME CARE
[2019-02-08] MEDS: HYDROcodone-ACET 10/325MG TAB PO PRN (15:12)
--- NOTE | 2019-02-08 15:35 | NUR ---
RECEIVED PATIENT FROM THE ICU, A/O TIMES 4 , SALINE LOCK 20G TO THE RAC, STATES HE CAN USE THE URINAL, DRESSING TO THE MIDDLE OF CHEST DRY AND INTACT, O2 BY R/A, STATES HE IS STILL WEAK, RT LUNG SOUNDS CLEAR AND THE LEFT WITH FINE RALES, ABD SOFT AND NON TENDER, UPPER CHEST INCISION WELL APPROXIMATED AND NO DRAINAGE
--- NOTE | 2019-02-08 15:39 | NUR ---
PATIENT TRANSFERRED TO ROOM 265 VIA ACLS GUIDELINES, RN MERY AT BEDSIDE
--- NOTE | 2019-02-08 16:35 | NUR ---
SITTING UP IN BED WATCHING TV SON AT THE BEDSIDE
--- NOTE | 2019-02-08 17:03 | NUR ---
SON LEFT AND WENT HOME PATIENT WATCHING TV, NO COMPLAINTS
[2019-02-08] MEDS: WARFARIN SODIUM 1 MG TAB PO SCH (17:41)
--- NOTE | 2019-02-08 18:19 | NUR ---
SITTING UP IN THE BED EATING HIS DINNER, SALINE LOCK TO THE RAC 20G INTACT, FLUSHED AND PATENT, STATES HE CAN USE THE URINAL, BUT NO URINE OUTPUT FOR ME, DRESSING TO THE CHEST DRY AND INTACT, MIDDLE OF THE CHEST INCISION DRY AND WELL APPROXIMATED , O2 BY THE R/A, NO COMPLAINTS OF PAIN , WILL CONTINUE TO MONITOR AND GIVE REPORT TO THE NEXT SHIFT
--- NOTE | 2019-02-08 20:00 | NUR ---
SHIFT OPENING NOTE RECEIVED PATIENT AWAKE, ALERT AND ORIENTED X4. NO SOB, DISTRESS OR PAIN NOTED. ON ROOM AIR. MIDCHEST INCISION NOTED OPEN TO AIR. CLEAN, DRY AND WELL APPROXIMATED. DRESSING NOTED UNDER THE INCISION WHERE THE CHEST TUBES WERE, C/D/I. IV RAC 20G SL. PHYSICAL ASSESSMENT COMPLETED, SEE INTERVENTIONS. INSTRUCTED ON POC AND TO CALL FOR ASSIST NEEDED. BED IS IN THE LOWEST POSITION WITH SIDE RAILS UP X2, CALL LIGHT IS WITHIN REACH.
--- NOTE | 2019-02-08 21:00 | NUR ---
AMBULATION PATIENT AMBULATED 15 LAPS AROUND THE NURSES STATION. SAFELY ASSISTED BACK TO BED.
[2019-02-09] VITALS: BP 108/68
[2019-02-09] MEDS: ACCU-CHEK COMFORT CURVE STRIP VI SCH ×4 (00:13→17:59)
--- NOTE | 2019-02-09 00:15 | NUR ---
ROUNDS PATIENT LAYING IN BED AWAKE. NO SOB, DISTRESS OR PAIN NOTED. URINAL EMPTIED 400 ML OUT. WILL CONTINUE TO CLOSELY MONITOR.
[2019-02-09 04:00] VITALS: BP 93/61
--- NOTE | 2019-02-09 05:00 | NUR ---
MORNING HYGIENE CARE FULL BED BATH PERFORMED WITH CHG WIPES. CHEST INCISIONS CLEANSED WITH CHLORHEXIDINE SWABS AND LOWER CHEST DRESSING CHANGED. SKIN REASSESSED AT THIS TIME WITH NO NEW CHANGES. GOWN CHANGED. PARTIAL LINEN CHANGED.
--- NOTE | 2019-02-09 05:30 | NUR ---
MORNING AMBULATION PATIENT WALKED 11 LAPS AROUND NURSES STATION. TOLERATED IT WELL. SAFELY ASSISTED BACK TO BED.
[2019-02-09] MEDS: InsuLIN REG 1unit/0.01ml Soln (100units/ml) SC SCH ×4 (06:00→17:58)
[2019-02-09] MEDS: ALBUTEROL SULF 2.5 MG/0.5ML(0.5%) NEB SOLN NEB SCH ×5 (06:19→22:35)
[2019-02-09] MEDS: IPRATROPIUM BROM 0.5 MG/2.5ML INH SOL NEB SCH ×5 (06:19→22:35)
--- NOTE | 2019-02-09 06:50 | NUR ---
END OF SHIFT PATIENT IS LAYING IN BED AWAKE. NO SOB, DISTRESS OR PAIN NOTED. WILL GIVE REPORT AND ENDORSE CARE TO THE DAY SHIFT RN.
--- NOTE | 2019-02-09 07:30 | NUR ---
RECEIVED PATIENT SEMI FOWLERS IN BED, AWAKEN BY NAME BEING CALLED, STATES HE DIDN'T GET A LOT OF SLEEP LAST NIGHT, EXPRESS TO HIM THAT I WOULD LET HIM SLEEP AFTER I DID MY ASSESSMENT, USES THE URINAL, SALINE LOCK 20G TO THE RAC FLUSHED AND PATENT, O2 BY R/A, NOIT COMPLAINING OF PAIN
[2019-02-09 08:00] VITALS: BP 112/63
[2019-02-09] MEDS: Glucerna Carbsteady SHAKE Vanilla 8oz PO SCH ×3 (08:00→17:58)
--- NOTE | 2019-02-09 08:05 | NUR ---
DR HUGHES IN T O SEE THE PATIENT AND STATED HE WILL PROBABLY SEND HIM HOME FRIDAY
--- NOTE | 2019-02-09 08:30 | NUR ---
REFUSED TO EAT HIS BREAKFAST, WHEN WAKEN AND WENT BACK TO SLEEP
[2019-02-09 09:06] LABS: INR 1.06 (0.9-1.15); Partial Thromboplastin Time 29.6 sec (23.64-32.05)
[2019-02-09] MEDS: CHLORHEXIDINE 0.12% ORAL rinse 473ML MT SCH ×2 (10:00→21:00)
--- NOTE | 2019-02-09 10:10 | NUR ---
SON IN TO SEE THE PATIENT
[2019-02-09] MEDS: ASPirin 81 mg TAB PO SCH (10:21)
[2019-02-09] MEDS: DOCUSATE SOD 100 MG CAP PO SCH ×2 (10:21→21:07)
[2019-02-09 10:22] LABS: BUN/Creatinine Ratio 22.7; Calcium 8.9 mg/dL (8.5-10.1); Potassium 4.1 mmol/L (3.5-5.1)
[2019-02-09] MEDS: CARVEDILOL 3.125 MG TAB PO SCH ×2 (10:22→21:08)
[2019-02-09] MEDS: POTASSIUM CHL 20 Meq TABLET PO SCH ×2 (10:22→21:07)
[2019-02-09] MEDS: FUROSEMIDE 40 MG TAB PO SCH (10:23)
[2019-02-09] MEDS: PANTOPRAZOLE 40 MG TAB PO SCH (10:23)
[2019-02-09] MEDS: NITROGLYCERIN 0.4MG/HR TOPICAL PATCH TD SCH (10:25)
--- NOTE | 2019-02-09 10:25 | NUR ---
EXPLAIN MEDICATIONS TO THE PATIENT REGARDING THE DOSAGE, USAGE, AND THE SIDE EFFECTS, VERBALIZED THAT HE UNDERSTOOD AND MEDS TAKEN ORDERED
--- NOTE | 2019-02-09 10:40 | NUR ---
BREATHING TREATMENT BEING GIVEN
--- NOTE | 2019-02-09 10:50 | NUR ---
TO THE BSC BUT NO RESULTS
--- NOTE | 2019-02-09 11:20 | NUR ---
CARLOS Gambino MP IN TO SEE THE PATIENT AND ORDERED MEDICATION FOR HIS CONSTIPATION
--- NOTE | 2019-02-09 11:30 | NUR ---
WALKING IN THE UNIT USING THE WALKER SON WITH THE PATIENT
[2019-02-09 11:50] VITALS: BP 119/58
[2019-02-09] MEDS: POLYETHYLENE GLYCOL 17 GM PWDR PO PRN (12:23)
[2019-02-09] MEDS: SODIUM FERR GLUC 62.5MG/5ML 125 MG in SODIUM CHL 0.9% 100 ML IV SCH (12:24)
--- NOTE | 2019-02-09 12:45 | NUR ---
SITTING UP IN THE CHAIR MIRALAX GIVEN TO HELP WITH CONSTIPATION
--- NOTE | 2019-02-09 13:00 | NUR ---
ATE VERY LITTLE LUNCH
--- NOTE | 2019-02-09 13:18 | NUR ---
PT Patient ambulating independently using rolling Kristian cortes to nursing. Addendum: 02/09/19 at 1319 by ALVARO HAM PTT Amended: Links added.
--- NOTE | 2019-02-09 13:30 | NUR ---
SITTING UP IN THE CHAIR STILL GETTING UP TO THE BR TO SEE IF HE CAN HAVE A BM BUT NONE AT THIS TIME
--- NOTE | 2019-02-09 14:30 | NUR ---
GOTTEN BACK INTO THE BED WITH HELP MINIMAL HELP BY THE
--- NOTE | 2019-02-09 15:19 | NUR ---
Nutrition Follow-up Notes Wt.: 86.7 kg Pt was on BSC when rounded this am. per records pt had CABG on 02/02 and is constipated per records. pt is currently on CCHO 60 gm cardiac diet with Glucerna 1ccarton tid with inadequate PO of 50% x 2 days per RN doc Est. Needs: 1700 kcal to 2150 kcal (20-25 kcal/kgBW), 68 gms to 85 gms pro (0.8-1.0 gms/kgBW). Will continue to monitor pertinent labs and reassess nutrient need prn Labs: BUN 25 H, GLU 115 H ALB 3.2 L Skin: Filipe scale 18, mod risk, incision at site of sx per documentation spec. GI: Pt had 1 BM on 02/08/19 per documentation spec. PES: Altered nutrition related lab values r/t acute/chronic medical condition aeb hyperglycemia, elev. HbA1c, LFTs Will continue to monitor PO intake, skin status, pertinent labs and weight trend. F/u in 3-5 days. Rec.: 1.) Continue close supervision with meals 2.) Refer to RD for further nutrition education and weight monitoring upon discharged. 3.) Continue current plan of care.
[2019-02-09 15:45] VITALS: BP 106/63
--- NOTE | 2019-02-09 16:00 | NUR ---
UP WALKING THE UNIT USING THE WALKER
--- NOTE | 2019-02-09 16:31 | NUR ---
BACK SITTING UP IN THE BED ON THE CELL PHONE
--- NOTE | 2019-02-09 17:30 | NUR ---
UP TO THE BR BUT NO BM, WALKING IN ROOM
[2019-02-09] MEDS: WARFARIN SODIUM 1 MG TAB PO SCH (18:12)
--- NOTE | 2019-02-09 18:15 | NUR ---
SITTING UP IN THE BED, O2 BY R/A, A/O TIMES 4, AT THE BEDSIDE, HAVING A BREATHING TREATMENT, DRESSING TO THE CHEST DRY AND INTACT, RAC 20G INTACT, FLUSHED AND PATENT, AT THE BEDSIDE, NO COMPLAINT OF PAIN, WILL CONTINUE TO MONITOR AND GIVE REPORT TO THE NEXT SHIFT
--- NOTE | 2019-02-09 19:40 | NUR ---
PM AMBULATION PATIENT AMBULATED 14 LAPS AROUND NURSES STATION. TOLERATED IT WELL. SAFELY BACK TO BED.
[2019-02-09 19:50] VITALS: BP 122/62
[2019-02-09] MEDS ORDERED: NITROGLYCERIN 50MG/250ML BTL IV ONE (20:20)
[2019-02-10] VITALS: BP 110/66
--- NOTE | 2019-02-10 00:05 | NUR ---
ROUNDS PATIENT LAYING IN BED AWAKE. COMPLAINED THAT "THE ROOM IS SPINNING." PATIENT SAID IT HASN'T HAPPENED IN 2 DAYS BUT HE HAS A HISTORY OF VERTIGO. VS STABLE. WILL CONTINUE TO CLOSELY MONITOR.
[2019-02-10] MEDS: ACCU-CHEK COMFORT CURVE STRIP VI SCH ×4 (00:08→18:58)
[2019-02-10 04:00] VITALS: BP 117/67
[2019-02-10] MEDS: ALBUTEROL SULF 2.5 MG/0.5ML(0.5%) NEB SOLN NEB SCH ×5 (05:51→21:33)
[2019-02-10] MEDS: IPRATROPIUM BROM 0.5 MG/2.5ML INH SOL NEB SCH ×5 (05:51→21:33)
[2019-02-10] MEDS: InsuLIN REG 1unit/0.01ml Soln (100units/ml) SC SCH ×4 (06:00→18:00)
--- NOTE | 2019-02-10 06:30 | NUR ---
MORNING AMBULATION PATIENT WALKED 14 LAPS AROUND NURSES STATION. TOLERATED IT WELL. SAFELY ASSISTED BACK TO ROOM. SITTING ON CHAIR.
[2019-02-10] MEDS: POLYETHYLENE GLYCOL 17 GM PWDR PO PRN (06:54)
--- NOTE | 2019-02-10 07:20 | NUR ---
END OF SHIFT PATIENT IS AMBULATING AROUND THE UNIT. REPORT GIVEN AND CARE ENDORSED TO STEPHANIE WOMACK.
--- NOTE | 2019-02-10 07:30 | NUR ---
Opening Shift Note Assumed care of patient, awake and alert, walking at the [address] with walker and monitor. No S/S of distress/SOB or pain. Instructed on POC and to call for assist PRN, will continue to monitor for changes Q1hr and PRN.
[2019-02-10 07:40] VITALS: BP 126/82
--- NOTE | 2019-02-10 08:00 | NUR ---
Patient walking inside the room and restroom, had 2 small bowel movement.
--- NOTE | 2019-02-10 08:30 | NUR ---
Patient sitting on the chair, no complaining of N/V noted, Breakfast tray provided, but patient stated that doesn't want to have nothing at this time.
--- NOTE | 2019-02-10 08:50 | NUR ---
Patient went back to the bed, sleeping at this time. HR 86/min, O2 saturation with Room air 94-98%.
[2019-02-10] MEDS: Glucerna Carbsteady SHAKE Vanilla 8oz PO SCH ×3 (08:51→18:57)
[2019-02-10] MEDS: DOCUSATE SOD 100 MG CAP PO SCH ×2 (10:00→22:19)
[2019-02-10] MEDS: NITROGLYCERIN 0.4MG/HR TOPICAL PATCH TD SCH (10:22)
[2019-02-10] MEDS: ASPirin 81 mg TAB PO SCH (10:22)
[2019-02-10] MEDS: PANTOPRAZOLE 40 MG TAB PO SCH (10:22)
[2019-02-10] MEDS: FUROSEMIDE 40 MG TAB PO SCH (10:23)
[2019-02-10] MEDS: CARVEDILOL 3.125 MG TAB PO SCH ×2 (10:24→22:17)
[2019-02-10] MEDS: POTASSIUM CHL 20 Meq TABLET PO SCH ×2 (10:24→22:20)
[2019-02-10] MEDS: CHLORHEXIDINE 0.12% ORAL rinse 473ML MT SCH ×2 (10:25→22:42)
--- NOTE | 2019-02-10 11:10 | NUR ---
Dr. Power at the bedside, seen and examined patient at this time, plan of care discussed with patient, patient made aware, plan Addendum: 02/10/19 at 1144 by JOJO LACY RN RN Plan to transfer to [place] if Dr. Clemens agree with the plan.
--- NOTE | 2019-02-10 11:44 | NUR ---
Paged Dr. Celmens, waiting for a call back from .
[2019-02-10 11:45] VITALS: BP 126/85
--- NOTE | 2019-02-10 11:51 | NUR ---
Received a call from Dr. Clemens at [facility] time, made aware about patient's condition, okay to transfer to Tele. Addendum: 02/10/19 at 1213 by JOJO LACY RN RN Dr. Clemens stated that he okay to discharge if Dr. Power agree.
[2019-02-10] MEDS: SODIUM FERR GLUC 62.5MG/5ML 125 MG in SODIUM CHL 0.9% 100 ML IV SCH (12:35)
--- NOTE | 2019-02-10 12:45 | NUR ---
re-assessment Per consult home health. Home health has already been set up. Kelby Guerrier will start care within 48 hours of discharge. Addendum: 02/10/19 at 1254 by Gloria Andres Amended: Links added.
--- NOTE | 2019-02-10 12:45 | NUR ---
Lunch alethay provided, his at the bedside.
[2019-02-10 12:56] LABS: Basophils # (auto) 0.1 uL; Basophils % (auto) 0.6 % (0.0-2.0); Eosinophils # (auto) 0.3 uL; Eosinophils % (auto) 2.5 % (0.0-7.0); Hematocrit 28.2 % (41.0-53.0); Hemoglobin 9.6 g/dL (13.5-17.5); Lymphocytes # (auto) 1.2 uL; Lymphocytes % (auto) 10.7 % (10.0-50.0); Mean Corpuscular Hemoglobin 32.4 pg (28.0-32.0); Mean Corpuscular Hgb Conc. 33.9 g/dL (32.0-36.0); Mean Corpuscular Volume 95.5 fL (80.0-100.0); Monocytes # (auto) 1.1 uL; Monocytes % (auto) 10.3 % (0.0-12.0); Neutrophils # (auto) 8.2 uL; Neutrophils % (auto) 75.9 % (37.0-80.0); Nucleated Red Blood Cells % 0.1 %; Platelet Count (auto) 261 10^3/uL (140-450); Red Blood Cells 2.95 10^6/uL (4.5-5.90); Red Cell Distribution Width 14.8 % (11.8-14.3); White Blood Cell 10.9 10^3/uL (4.4-10.8)
[2019-02-10 13:09] LABS: INR 1.18 (0.9-1.15)
--- NOTE | 2019-02-10 13:19 | NUR ---
Patient had around 25% of Lunch.
--- NOTE | 2019-02-10 14:20 | NUR ---
INR 1.18.
--- NOTE | 2019-02-10 15:35 | NUR ---
Patient went back to bed after walking at the hallway around 10 rounds, patient tolerated well, HR 80-88/min, RR 20-22/min, O2 saturation 92-96%.
[2019-02-10 15:51] VITALS: BP 122/65
--- NOTE | 2019-02-10 16:10 | NUR ---
Patient has friend visiting, patient sitting on the bed, talking to his friend, no complaining of chest pain or SOB noted, no arrhythmia noted.
--- NOTE | 2019-02-10 18:00 | NUR ---
Patient walking at the hallway, IS around [id number] ml.
--- NOTE | 2019-02-10 18:29 | NUR ---
Patient walked around inside the room, his son at the bedside, RT at the bedside as well for breathing treatment. Vital sign stable , no complaining of chest pain noted.
[2019-02-10] MEDS: WARFARIN SODIUM 1 MG TAB PO SCH (19:01)
--- NOTE | 2019-02-10 19:45 | NUR ---
OPEN NOTES Assumed care of patient. No complains of pain. Patient just ambulated 10 laps at shift change. VS stable. On room air. SPO2 92-96%. Breathing comfortably. Full assessment done -refer intervention. Dressing noted at previous chest tube site -dry and intact. Midline incision open to air, clean and dry. Right groin noted with ecchymosis. IV line at right AC saline flushed. Will continue to monitor PRN
[2019-02-10 20:00] VITALS: BP 138/77
--- NOTE | 2019-02-10 22:15 | NUR ---
INCISIONAL CARE Midline incision cleaned with CHG swab Previous chest tube site dressing clean dry and intact
[2019-02-11] VITALS: BP 97/61
[2019-02-11] MEDS: ACCU-CHEK COMFORT CURVE STRIP VI SCH ×5 (00:14→23:43)
--- NOTE | 2019-02-11 01:10 | NUR ---
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
--- NOTE | 2019-02-11 01:10 | NUR ---
PATIENT ARRIVED TO UNIT Received report from RN. Patient arrived to unit via wheelchair. Patient is A&O's 4 with no s/s of distress noted. Patient able to ambulate with walker with steady gait to bathroom and back into bed. Some SOB with exertion. Patient oriented to unit. Educated patient on POC and to use call light when in need of assistance. Patient verbalized understanding. Bed is in lowest/locked position with side rails up X's 2 and call light is within reach of patient. All personal belonging are within reach of patient as well. Will continue to monitor for changes and round hourly/PRN.
[2019-02-11 05:00] VITALS: BP 110/65
[2019-02-11] MEDS: InsuLIN REG 1unit/0.01ml Soln (100units/ml) SC SCH ×5 (06:00→23:44)
[2019-02-11 07:10] LABS: Basophils # (auto) 0.2 uL; Basophils % (auto) 1.5 % (0.0-2.0); Eosinophils # (auto) 0.4 uL; Eosinophils % (auto) 3.8 % (0.0-7.0); Hematocrit 32.3 % (41.0-53.0); Hemoglobin 10.8 g/dL (13.5-17.5); Lymphocytes # (auto) 1.2 uL; Lymphocytes % (auto) 11.3 % (10.0-50.0); Mean Corpuscular Hemoglobin 32.4 pg (28.0-32.0); Mean Corpuscular Hgb Conc. 33.6 g/dL (32.0-36.0); Mean Corpuscular Volume 96.4 fL (80.0-100.0); Neutrophils # (auto) 7.9 uL; Neutrophils % (auto) 74.4 % (37.0-80.0); Platelet Count (auto) 312 10^3/uL (140-450); Red Blood Cells 3.35 10^6/uL (4.5-5.90); Red Cell Distribution Width 14.8 % (11.8-14.3); White Blood Cell 10.6 10^3/uL (4.4-10.8)
[2019-02-11] MEDS: IPRATROPIUM BROM 0.5 MG/2.5ML INH SOL NEB SCH ×5 (07:13→22:12)
[2019-02-11] MEDS: ALBUTEROL SULF 2.5 MG/0.5ML(0.5%) NEB SOLN NEB SCH ×5 (07:13→22:12)
[2019-02-11 07:31] LABS: BUN/Creatinine Ratio 22.3; Calcium 9.1 mg/dL (8.5-10.1); Potassium 4.2 mmol/L (3.5-5.1)
[2019-02-11] MEDS: Glucerna Carbsteady SHAKE Vanilla 8oz PO SCH ×3 (08:00→18:20)
--- NOTE | 2019-02-11 08:00 | NUR ---
Patient encouraged to use IS. Patient states understanding.
[2019-02-11 09:00] VITALS: BP 115/73
--- NOTE | 2019-02-11 09:07 | NUR ---
Patient ambulated in [place] with walker. Tolerated fair. Some shortness of breath noted. Will continue to monitor.
[2019-02-11] MEDS: DOCUSATE SOD 100 MG CAP PO SCH ×2 (10:00→21:44)
--- NOTE | 2019-02-11 10:00 | NUR ---
Dr. Tha Dave in to see patient as hospitalist. Explained to the patient and his that patient's INR is not therapeutic so patient can't be discharged today. Patient and his state understanding.
[2019-02-11] MEDS: PANTOPRAZOLE 40 MG TAB PO SCH (10:08)
[2019-02-11] MEDS: POTASSIUM CHL 20 Meq TABLET PO SCH ×2 (10:08→21:45)
[2019-02-11] MEDS: FUROSEMIDE 40 MG TAB PO SCH (10:09)
[2019-02-11] MEDS: ASPirin 81 mg TAB PO SCH (10:09)
[2019-02-11] MEDS: CARVEDILOL 3.125 MG TAB PO SCH ×2 (10:10→21:45)
[2019-02-11] MEDS: CHLORHEXIDINE 0.12% ORAL rinse 473ML MT SCH ×2 (10:11→21:44)
[2019-02-11] MEDS: NITROGLYCERIN 0.4MG/HR TOPICAL PATCH TD SCH (10:11)
[2019-02-11 10:32] LABS: INR 1.26 (0.9-1.15)
[2019-02-11] MEDS ORDERED: LORATADINE 10 MG TAB PO ONE (11:00)
[2019-02-11] MEDS: SODIUM FERR GLUC 62.5MG/5ML 125 MG in SODIUM CHL 0.9% 100 ML IV SCH (13:48)
[2019-02-11 17:00] VITALS: BP 121/63
[2019-02-11] MEDS: WARFARIN SODIUM 1 MG TAB PO SCH (17:39)
--- NOTE | 2019-02-11 18:11 | NUR ---
Patient ambulated in [place] with walker several times this shift. Tolerated well.
--- NOTE | 2019-02-11 18:12 | NUR ---
Patient OOB to chair ad zena this shift.
--- NOTE | 2019-02-11 18:19 | NUR ---
Dr. Jones in to see patient this shift.
--- NOTE | 2019-02-11 19:31 | NUR ---
Opening Note Assumed pt care from day shift nurse. Pt is a/ox4 with no s/s of distress. Pt is currently sitting at the edge of his bed and states that he feels slightly claustrophobic and slightly dizzy. Guided pt back into bed and repositioned pt. Offered pt to be placed on O2 to aid in feelings of dizziness and claustrophobic; pt agreed. Discussed POC with pt. Pt stated that the feelings he is feeling now may be related to the news he received about postponing his d/c. Spoke with pt about reasons for withholding the d/c. Pt verbalized reasons why and verbalized understanding. Surgical incisions midline on chest and abdominal appear to be asymptomatic. Midline incision is open to air and is asymptomatic. Abdominal is covered with dressing. Pt denies any complaints. Safety measures maintained with call light within reach, bed in lowest position and side rails up. Will continue to monitor for changes q1hr and prn.
[2019-02-11 22:00] VITALS: BP 99/63
[2019-02-11 22:01] VITALS: BP 99/63
[2019-02-12 05:00] VITALS: BP 101/65
--- NOTE | 2019-02-12 05:24 | NUR ---
Blood Sugar Took pt's blood sugar, read 59. Pt stated that he felt fine and showed no s/s of hypoglycemia. Rechecked the pt's blood sugar, read 110. Will continue to monitor for changes or for any s/s.
[2019-02-12] MEDS: ACCU-CHEK COMFORT CURVE STRIP VI SCH ×2 (05:26→12:15)
[2019-02-12] MEDS: InsuLIN REG 1unit/0.01ml Soln (100units/ml) SC SCH ×2 (05:26→12:00)
[2019-02-12] MEDS: IPRATROPIUM BROM 0.5 MG/2.5ML INH SOL NEB SCH ×3 (06:13→14:30)
[2019-02-12] MEDS: ALBUTEROL SULF 2.5 MG/0.5ML(0.5%) NEB SOLN NEB SCH ×3 (06:13→14:30)
[2019-02-12 06:53] LABS: INR 1.48 (0.9-1.15); Partial Thromboplastin Time 34.2 sec (23.64-32.05)
--- NOTE | 2019-02-12 07:50 | NUR ---
Opening Shift Note Assumed care of patient, awake and alert. No S/S of distress/SOB or pain. Instructed on POC and to call for assist PRN, will continue to monitor for changes Q1hr and PRN. Patient transferred from bed to chair by using walker. No complaining of chest pain or pain noted.
--- NOTE | 2019-02-12 08:30 | NUR ---
Dr. Dave at the bedside, plan of care discussed with patient, receivexd order to discharge home today, patient agreed with the plan.
[2019-02-12 09:00] VITALS: BP 107/57
[2019-02-12] MEDS: NITROGLYCERIN 0.4MG/HR TOPICAL PATCH TD SCH (10:00)
[2019-02-12] MEDS: CHLORHEXIDINE 0.12% ORAL rinse 473ML MT SCH (10:00)
[2019-02-12] MEDS ORDERED: LORATADINE 10 MG TAB PO SCH (10:00)
[2019-02-12] MEDS: DOCUSATE SOD 100 MG CAP PO SCH (10:20)
[2019-02-12] MEDS: FUROSEMIDE 40 MG TAB PO SCH (10:21)
[2019-02-12] MEDS: PANTOPRAZOLE 40 MG TAB PO SCH (10:21)
[2019-02-12] MEDS: ASPirin 81 mg TAB PO SCH (10:22)
[2019-02-12] MEDS: CARVEDILOL 3.125 MG TAB PO SCH (10:22)
[2019-02-12] MEDS: POTASSIUM CHL 20 Meq TABLET PO SCH (10:23)
[2019-02-12] MEDS: Glucerna Carbsteady SHAKE Vanilla 8oz PO SCH ×2 (10:23→12:15)
[2019-02-12 11:12] VITALS: BP 107/57
--- NOTE | 2019-02-12 11:30 | NUR ---
Patient walking at the hallway with his .
--- NOTE | 2019-02-12 11:48 | NUR ---
Follow up Dr. Peraza on 02/22/[address] Jones on 02/24/[address] Harry: the office will call patient to set up the appointment Coumad[facility] clinic on 02/19/19 at 8.30 am
[2019-02-12] MEDS: SODIUM FERR GLUC 62.5MG/5ML 125 MG in SODIUM CHL 0.9% 100 ML IV SCH (12:00)
[2019-02-12 13:00] VITALS: BP 111/67
--- NOTE | 2019-02-12 15:00 | NUR ---
Patient and his already watched DVD "leaving the hospital after heart surgery", wound dressing changed at this time as well.
--- NOTE | 2019-02-12 15:47 | NUR ---
Discharge instructions given as ordered. Encourage to follow up with PMD as instructed. All questions and concerns addressed. Patient verbalized understanding. Medication reconciliation form completed and copy given to patient. Patient also got medication refilled from [facility] pharmacy, IV removed with catheter intact, pressure dressing applied. Telemetry unit returned to [facility]. Patient taken to vehicle via wheelchair with all personal belongings, accompanied by staff and family member. No distress noted at time of departure. Patient takes IS at home and made aware that he needs to continue exercising with IS 10 x x 1 hour, not to lift heavier than 10 lbs for 4-6 weeks or until say so, do not let water hit chest or scrub incision sites. S/S of infections, wound care/DSG changes, chest pain, when to come to ER.
== END 2019-02-12 15:30 | disposition home or self-care (01) | DRG 217 ==
LOC: CATH 08:01 → TELE-WESTW 11:34 → ICU WEST 02-01 23:10 → DOU IN ICU 02-08 15:17 → TELE-EAST 02-11 01:47
PROVIDERS: ADMIT Internal Medicine; ATTEND Family Medicine
PROC: 4A023N8 Measurement of Cardiac Sampling and Pressure, Bilateral, Percutaneous Approach (ICD-10-PCS; 2019-01-27)
PROC: B2111ZZ Fluoroscopy of Multiple Coronary Arteries using Low Osmolar Contrast (ICD-10-PCS; 2019-01-27)
PROC: B2151ZZ Fluoroscopy of Left Heart using Low Osmolar Contrast (ICD-10-PCS; 2019-01-27)
PROC: 02100A9 Bypass Coronary Artery, One Artery from Left Internal Mammary with Autologous Arterial Tissue, Open Approach (ICD-10-PCS; 2019-02-02)
PROC: 5A1221Z Performance of Cardiac Output, Continuous (ICD-10-PCS; 2019-02-02)
PROC: B24BZZ4 Ultrasonography of Heart with Aorta, Transesophageal (ICD-10-PCS; 2019-02-02)
PROC: 02RF0JZ Replacement of Aortic Valve with Synthetic Substitute, Open Approach (ICD-10-PCS; principal; 2019-02-02 07:18)
PROC: 30233N1 Transfusion of Nonautologous Red Blood Cells into Peripheral Vein, Percutaneous Approach (ICD-10-PCS; 2019-02-03)
PROC: 5A1935Z Respiratory Ventilation, Less than 24 Consecutive Hours (ICD-10-PCS; 2019-02-04)
PROC: 0BH17EZ Insertion of Endotracheal Airway into Trachea, Via Natural or Artificial Opening (ICD-10-PCS; 2019-02-04)
PROC: 5A1935Z Respiratory Ventilation, Less than 24 Consecutive Hours (ICD-10-PCS; 2019-02-05)
PROC: 5A1935Z Respiratory Ventilation, Less than 24 Consecutive Hours (ICD-10-PCS; 2019-02-06)
PROC: 5A1935Z Respiratory Ventilation, Less than 24 Consecutive Hours (ICD-10-PCS; 2019-02-07)
DX: I35.0 Nonrheumatic aortic (valve) stenosis (principal); I43 Cardiomyopathy in diseases classified elsewhere; J98.11 Atelectasis; I11.9 Hypertensive heart disease without heart failure; I25.10 Atherosclerotic heart disease of native coronary artery without angina pectoris; K21.9 Gastro-esophageal reflux disease without esophagitis; E78.00 Pure hypercholesterolemia, unspecified; D64.9 Anemia, unspecified; R31.9 Hematuria, unspecified; E11.21 Type 2 diabetes mellitus with diabetic nephropathy; R06.03 Acute respiratory distress; K59.00 Constipation, unspecified; Z79.01 Long term (current) use of anticoagulants; Z95.3 Presence of xenogenic heart valve; Z95.5 Presence of coronary angioplasty implant and graft; Z88.0 Allergy status to penicillin; Z79.899 Other long term (current) drug therapy
CPT/HCPCS: 36415; 36600; 71045; 71250; 76775; 76881; 80048; 80053; 80061; 82040; 82805; 82962; 83036; 83735; 84100; 84132; 85025; 85576; 85610; 85730; 86850; 86900; 86901; 86920; 87070; 87081; 93005; 93886; 93970; 94002; 94640; 94660; 97110; 97116; 97163; 97530; 99152; 99153; C1751; C1768; G0378; J0131; J0153; J0610; J0690; J1100; J1642; J1644; J1815; J2250; J2405; J2440; J2704; J2720; J3480; J7060; P9047

== ENCOUNTER → 2019-04-07 | Outpatient (CLI) | payer MEDICARE, OTHER ==
[~2019-04-07] MED LIST changes: +VITA400C49 PO
[2019-04-07 10:40] LABS: INR 2.25 (0.9-1.15)
== END | disposition home or self-care (01) ==
LOC: LAB 09:59
PROVIDERS: ATTEND Physician Assistant
DX: I35.0 Nonrheumatic aortic (valve) stenosis (principal); Z79.01 Long term (current) use of anticoagulants
CPT/HCPCS: 36415; 85610

== ENCOUNTER → 2019-06-07 | Outpatient (CLI) | payer OTHER, MEDICARE ==
[2019-06-07 13:08] LABS: Basophils # (auto) 0.1 uL; Basophils % (auto) 1.6 % (0.0-2.0); Eosinophils # (auto) 0.2 uL; Eosinophils % (auto) 3.4 % (0.0-7.0); Hematocrit 46.2 % (41.0-53.0); Hemoglobin 15.9 g/dL (13.5-17.5); Lymphocytes # (auto) 1.4 uL; Lymphocytes % (auto) 20.3 % (10.0-50.0); Mean Corpuscular Hemoglobin 30.5 pg (28.0-32.0); Mean Corpuscular Hgb Conc. 34.4 g/dL (32.0-36.0); Mean Corpuscular Volume 88.5 fL (80.0-100.0); Monocytes # (auto) 0.5 uL; Monocytes % (auto) 7.5 % (0.0-12.0); Neutrophils # (auto) 4.7 uL; Neutrophils % (auto) 67.2 % (37.0-80.0); Platelet Count (auto) 169 10^3/uL (140-450); Red Blood Cells 5.22 10^6/uL (4.5-5.90); Red Cell Distribution Width 15.4 % (11.8-14.3)
[2019-06-07 13:11] LABS: Urine Bacteria FEW /hpf (None Seen); Urine Blood Negative /uL (Negative); Urine Mucus FEW (None Seen); Urine WBC 1 /hpf (0 - 3)
[2019-06-07 13:49] LABS: Albumin 4.3 g/dL (3.4-5.0); Calcium 9.4 mg/dL (8.5-10.1); Potassium 4.1 mmol/L (3.5-5.1)
[2019-06-07 13:54] LABS: Bilirubin, Total 0.4 mg/dL (0.2-1.0); Total Protein 8.7 g/dL (6.4-8.2)
[2019-06-07 13:58] LABS: Free T4 (Free Thyroxine) 0.57 ng/dL (0.89-1.76); Prostate Specific Antigen 0.77 ng/mL (0.0-4.0)
== END | disposition home or self-care (01) ==
LOC: LAB 12:20
PROVIDERS: ATTEND Internal Medicine
DX: E78.5 Hyperlipidemia, unspecified (principal); R73.01 Impaired fasting glucose; I10 Essential (primary) hypertension; Z95.2 Presence of prosthetic heart valve
CPT/HCPCS: 36415; 80053; 80061; 81001; 82043; 83036; 84153; 84439; 84443; 85025; 85652

== ENCOUNTER 2019-08-27 15:29 | Emergency (ER) | payer MEDICARE, OTHER ==
[~2019-08-27] VITALS: Ht 170.2 cm; Wt 81.6 kg
[2019-08-27 15:50] VITALS: BP 139/90
[2019-08-27 16:25] LABS: Basophils # (auto) 0.1 uL; Basophils % (auto) 1.2 % (0.0-2.0); Eosinophils # (auto) 0.2 uL; Eosinophils % (auto) 2.3 % (0.0-7.0); Hematocrit 45.4 % (41.0-53.0); Hemoglobin 15.4 g/dL (13.5-17.5); Lymphocytes # (auto) 1.7 uL; Mean Corpuscular Hemoglobin 31.2 pg (28.0-32.0); Mean Corpuscular Hgb Conc. 33.9 g/dL (32.0-36.0); Mean Corpuscular Volume 92.2 fL (80.0-100.0); Monocytes # (auto) 0.7 uL; Monocytes % (auto) 8.6 % (0.0-12.0); Neutrophils # (auto) 5.7 uL; Neutrophils % (auto) 67.9 % (37.0-80.0); Nucleated Red Blood Cells % 0.1 %; Platelet Count (auto) 167 10^3/uL (140-450); Red Blood Cells 4.92 10^6/uL (4.5-5.90); Red Cell Distribution Width 14.8 % (11.8-14.3); White Blood Cell 8.3 10^3/uL (4.4-10.8)
[2019-08-27 16:43] LABS: Albumin 4.2 g/dL (3.4-5.0); Anion Gap 7 (5-15); Blood Urea Nitrogen 14 mg/dL (7-18); Calcium 9.5 mg/dL (8.5-10.1); Carbon Dioxide 26 mmol/L (21-32); Chloride 107 mmol/L (98-107); Glucose 91 mg/dL (74-106); Potassium 3.8 mmol/L (3.5-5.1); Sodium 140 mmol/L (136-145)
[2019-08-27 16:49] LABS: Alanine Aminotransferase 48 U/L (16-61); Alkaline Phosphatase 95 U/L (45-117); Aspartate Aminotransferase 39 U/L (15-37); BUN/Creatinine Ratio 15.9; Bilirubin, Total 0.4 mg/dL (0.2-1.0); GFR African American 109 mL/min; GFR Non-African American 90 mL/min; Total Protein 8.1 g/dL (6.4-8.2)
== END 2019-08-27 17:48 | disposition home or self-care (01) ==
LOC: ER 15:31
DX: F41.9 Anxiety disorder, unspecified (principal); R55 Syncope and collapse; H81.10 Benign paroxysmal vertigo, unspecified ear; E78.5 Hyperlipidemia, unspecified; K21.9 Gastro-esophageal reflux disease without esophagitis; Z86.73 Personal history of transient ischemic attack (TIA), and cerebral infarction without residual deficits; Z98.61 Coronary angioplasty status
CPT/HCPCS: 36415; 70450; 80053; 84484; 85025; 93005